=== PATIENT | male | born 1955 | race Caucasian/White ===

== ENCOUNTER 2016-12-23 04:42 | Emergency (ER) | payer MEDICARE, BC ==
[2016-12-23 05:33] VITALS: BP 111/60
[2016-12-23] MEDS ORDERED: Ketorolac INJ* 60 MG/2 ML VIAL IM ONE (05:49)
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
--- NOTE | 2016-12-23 08:04 | RAD ---
INDICATION: Left rib injury. TECHNIQUE: 4 views of the left ribs were obtained. FINDINGS: No fracture or significant focal osseous abnormality is seen. IMPRESSION: NO EVIDENCE FOR FRACTURE, IF THE PATIENT'S SYMPTOMS PERSIST RECOMMEND FOLLOW-UP IMAGING.
== END 2016-12-23 06:39 | disposition home or self-care (01) ==
LOC: ED 04:42
DX: S20.212A Contusion of left front wall of thorax, initial encounter (principal); K21.9 Gastro-esophageal reflux disease without esophagitis; M19.90 Unspecified osteoarthritis, unspecified site; B19.20 Unspecified viral hepatitis C without hepatic coma; X50.9XXA Other and unspecified overexertion or strenuous movements or postures, initial encounter; Y93.K9 Activity, other involving animal care; Y92.9 Unspecified place or not applicable; I25.10 Atherosclerotic heart disease of native coronary artery without angina pectoris; E78.00 Pure hypercholesterolemia, unspecified; Z72.0 Tobacco use
CPT/HCPCS: 93005; 96372; 99282; J1885

== ENCOUNTER 2019-01-31 02:23 | Emergency (ER) | payer MEDICARE ==
--- NOTE | 2019-01-31 02:46 | ED ---
Complex/Multi-Sys Presentation - HPI Summary HPI Summary: A 63 y/o M presents to the ED with c/o LLE pain from his ankle to knee onset last night. The pain was present yesterday, but less painful, and then intensity returned again this evening when he went to sleep. He's been unable to sleep due to the pain. Associated sx: intermittent mid-sternal CP described as not heavy; MOSES. Denies cough. PMHx: 3 stents, Liver CA. No history of blood clots. He takes a daily aspirin. Current smoker. He states falling down a few weeks ago, but nothing recently. He's used a massager on his LLE to mild relief. - History Of Current Complaint Chief Complaint: EDShortnessOfBreath Hx Obtained From: Patient Onset/Duration: Lasting Days, Still Present Timing: Constant Severity Currently: Moderate Severity Initially: Moderate Location: Pain At: - LLE Alleviating Factor(s): massage - mild relief Associated Signs And Symptoms: Positive: Chest Pain, Other - pos: dyspnea on exertion. Negative: Cough - Allergies/Home Medications Allergies/Adverse Reactions: Allergies Allergy/AdvReac Type Severity Reaction Status Date / Time No Known Allergies Allergy Verified 01/31/19 02:32 PMH/Surg Hx/FS Hx/Imm Hx Previously Healthy: No Endocrine/Hematology History: Reports: Hx Diabetes - DIET CONTROLLED Cardiovascular History: Reports: Hx Coronary Artery Disease - 2 CORONARY STENTS , Hx Hypercholesterolemia, Hx Hypertension, Other Cardiovascular Problems/ Disorders - CAD Denies: Hx Congestive Heart Failure, Hx Pacemaker/ICD GI History: Reports: Hx Gastroesophageal Reflux Disease History: Denies: Hx Renal Disease Musculoskeletal History: Reports: Hx Arthritis - ALL OVER Sensory History: Reports: Hx Contacts or Glasses Denies: Hx Hearing Aid Opthamlomology History: Reports: Hx Contacts or Glasses Psychiatric History: Denies: Hx Panic Disorder - Cancer History Cancer Type, Location and Year: [facility]STAT[facility] Hx Chemotherapy: No Hx Radiation Therapy: No - Surgical History Surgery Procedure, Year, and Place: CSP FUSION SURGERY, 2000, [facility]. [place] [facility] [place], [place], [place] [facility] [place] [facility] [place], [place] [facility] [place] CARDI[place] - 2008 Hx Anesthesia Reactions: No Infectious Disease History: Yes Infectious Disease History: Reports: Hx Hepatitis - HEP C Denies: Traveled Outside the [place] in Last 30 Days - Family History Known Family History: Positive: Cardiac Disease - Social History Occupation: Retired Lives: With Family Alcohol Use: None Hx Substance Use: No Substance Use Type: Reports: None Hx Tobacco Use: Yes Smoking Status (MU): Heavy Every Day Tobacco Smoker Review of Systems Positive: Chest Pain Positive: Other - pos: MOSES. Negative: Cough Musculoskeletal: Other - pos: LLE pain All Other Systems Reviewed And Are Negative: Yes Physical Exam - Summary Physical Exam Summary: Appearance: Well-appearing, Well-nourished, lying in bed comfortably Skin: Warm, dry, no obvious rash Eyes: sclera anicteric, no conjunctival pallor ENT: mucous membranes moist, pharynx appears normal Neck: Supple, nontender Respiratory: Clear to auscultation, no signs of respiratory distress Cardiovascular: Normal S1, S2. No murmurs. Normal distal pulses in tibial and radial bilaterally. Abdomen: Soft, nontender, normal active bowel sounds present Musculoskeletal: Normal, Strength/ROM Intact. LLE is markedly swollen and without erythema or streaking. Neurological: A&Ox3, awake and alert, mentation is normal, speech is fluent and appropriate Psychiatric: affect is normal, does not appear anxious or depressed Triage Information Reviewed: Yes Vital Signs On Initial Exam: Initial Vitals Temp Pulse Resp BP Pulse Ox 97.8 F 82 16 151/83 95 01/31/19 02:25 01/31/19 02:25 01/31/19 02:25 01/31/19 02:25 01/31/19 02:25 Vital Signs Reviewed: Yes Diagnostics - Vital Signs Vital Signs Temp Pulse Resp BP Pulse Ox 01/31/19 02:25 97.8 F 82 16 151/83 95 - Laboratory Result Diagrams: 01/31/19 03:35 01/31/19 03:35 Lab Statement: Any lab studies that have been ordered have been reviewed, and results considered in the medical decision making process. - Radiology CXR Radiology Interpretation Completed By: ED Physician Summary of Radiographic Findings: Perihilar prominent markings on right. - CT Chest/Thorax CTA CT Interpretation Completed By: Radiologist Summary of CT Findings: IMPRESSION: 1. No pulmonary emboli. 2. Biapical scarring. Paraseptal emphysema. 3. Stable 8mm pulmonary nodule in the media aspect of the left apex, 4 mm subpleural nodule in the left lingula, and 3 mm pulmonary nodule in the right lower lobe. 4. Additional small new pulmonary nodules as described above. For patients at low risk (minimal or absent history of smoking and of other known risk factors), no routine follow-up is indicated. For patients at high risk (history of smoking or of other known risk factors), consider optional CT at 12 months. (Lisa et al., Fleischner Society, 2017) 5. Mild cardiomegaly with coronary calcification. ED provider has reviewed this report. - EKG 0238 Cardiac Rate: NL - 77bpm EKG Rhythm: Sinus Rhythm ST Segment: Normal Ectopy: None Summary of EKG Findings: NSR at77 BPM, P waves, QRS complex, and T waves are within normal limits, T waves and intervals are normal, no ischemic changes. Re-Evaluation - Re-Evaluation 1 Re-Evaluation Time: 06:45 Change: Unchanged Comment: Pt is sleeping. Complex Multi-Symp Course/Dx Course Of Treatment: This is a patient with acute swelling of the left leg associated with onset of chest pain and dyspnea on exertion, new for the patient who normally can walk extended distances without difficulty. Exam notable only for swollen left leg. Clinical picture very concerning for DVT/PE, Wells score is high so will proceed to imaging/CTPA assuming renal function is adequate. Given high clinical suspicion I have elected to start heparin empirically. CXR shows Perihilar prominent markings on right. Patient will be signed out to Dr. Amado at shift change pending US results. Discharge - Sign-Out/Discharge Documenting (check all that apply): Sign-Out Patient Signing out patient TO: Hortencia Amado - pending US results Patient Received Moderate/Deep Sedation with Procedure: No - Discharge Plan Referrals: Arjun Daniel MD [Primary Care Provider] - - Attestation Statements Document Initiated by Scribe: Yes Documenting Scribe: Armen Kern Provider For Whom Scribe is Documenting (Include Credential): Dr. Adolfo Humphries MD Scribe Attestation: I, Armen Kern, scribed for Dr. Adolfo Humphries MD on 01/31/19 at 0687.
[2019-01-31] MEDS ORDERED: Heparin DRIP 25,000 UNITS(*) 25,000 UNITS/500 ML BAG IV SCH (03:00)
[2019-01-31 03:44] LABS: ABS Basophils 0.1 10^3/ul (0-0.2); ABS Eosinophils 0.1 10^3/ul (0-0.6); ABS Lymphocytes 1.4 10^3/ul (1.0-4.8); ABS Monocytes 0.9 10^3/ul (0-0.8); ABS Neutrophils 5.6 10^3/ul (1.5-7.7); ABS Nucleated RBC 0 10^3/ul; Eosinophil % 1.6 %; Hematocrit 26 % (36-46); Hemoglobin 8.1 g/dL (14.0-18.0); Lymphocyte % 17.7 %; Mean Corpuscular HGB Conc 32 g/dL (31-36); Mean Corpuscular Hemoglobin 29 pg (27-31); Mean Corpuscular Volume 91 fL (80-94); Mean Platelet Volume 7.8 fL (7.4-10.4); Nucleated Red Blood Cells % 0; Platelet Count 287 10^3/uL (150-450); Red Cell Distribution Width 15 % (10.5-15); White Blood Count 8.1 10^3/uL (3.5-10.8)
[2019-01-31 04:10] LABS: Albumin 2.8 g/dL (3.2-5.2); Albumin/Globulin Ratio 1.2 (1-3); EGFR African American 117.4 (>60); Globulin 2.4 g/dL (2-4); Potassium 3.7 mmol/L (3.5-5.0); Total Bilirubin 0.4 mg/dL (0.2-1.0); Total Protein 5.2 g/dL (6.4-8.9)
[2019-01-31 04:12] LABS: Troponin I 0.01 ng/mL (<0.04)
[2019-01-31] MEDS ORDERED: Iodixanol* (CONTRAST) 320 MG/ML 100 ML SDV IV ONE (04:32)
[2019-01-31] MEDS ORDERED: Morphine 4 MG/ML VIAL (1 ml) 4 MG/ML VIAL IV ONE (04:46)
--- NOTE | 2019-01-31 07:15 | ED ---
Progress - Progress Note Progress Note: 0657 The pt is a signout from Dr. Humphries on 01/31/19 0700, pending further evaluation and US results. Presently, the pt denies abd pain, vomiting, nausea, chest pain or sob. He reports hes had L leg pain associated for the last couple of weeks, and could not sleep which is why he initially came in. When asked if he has had anemia in the past, he states not that he has known about a hx of anemia. He states he has a hx of GI bleed and ulcer where he had bright red blood in his stool a couple of years ago, but he presently denies any black stool or blood in his stool. He is on aspirin for his heart. His hx also includes HTN, CHF, and he is a smoker. He denies alcohol use or any other drugs, and he is retired. His PCP is Dr. Daniel, and he sees Dr. Cates for GI. Vitals while in room : 64bpm, BP 115/72, respirations 20, SaO2 97%. Home Medications Medication Instructions Recorded Confirmed Type DULoxetine CAP* [Cymbalta CAP*] 60 mg PO BID 08/05/13 11/11/14 History Lisinopril TAB* [Prinivil TAB*] 10 mg PO DAILY 08/05/13 11/11/14 History Multivit with Iron,Minerals 1 chw PO DAILY 08/05/13 11/11/14 History [Flintstones Complete] Pantoprazole TAB * [Protonix TAB 40 mg PO DAILY 08/05/13 11/11/14 History (NF)] Aspirin 81 mg CHEW TAB* [Aspirin 81 mg PO DAILY 09/20/13 11/11/14 History Low Dose TAB*] Nitroglycerin TAB 0.4 MG* 0.4 mg SL Q5M PRN 09/20/13 11/11/14 History Amitriptyline TAB* [Elavil TAB*] 10 mg PO BEDTIME 11/11/14 11/11/14 History Methadone TAB* [Dolophine TAB*] 10 mg PO Q8HR PRN 11/11/14 11/11/14 History Sucralfate SUSP (NF) [Carafate 5 ml PO Q6HR 11/11/14 11/11/14 History SUSP (NF)] Varenicline (NF) [Chantix (NF)] 1 mg PO DAILY 11/11/14 11/11/14 History traZODone TAB* [Desyrel TAB*] 50 mg PO BEDTIME 11/11/14 11/11/14 History Naproxen TAB* [Naprosyn TAB*] 500 mg PO BID #30 tab 12/23/16 Rx Appearance: well-appearing, minimal pain distress, well-nourished Skin: Warm, color reflects adequate perfusion, dry Head: Normal Head/Face inspection, atraumatic Eyes: Conjunctiva clear ENT: Normal inspection Neck: Supple, no nodes, no JVD Respiratory: Lungs clear, normal breath sounds, no respiratory distress Cardio: RRR, No murmur, pulses normal, brisk capillary refill Abdomen: Soft, nontender Bowel sounds: Present Musculoskeletal: Multiple excoriations on bilateral forearms, sleeves on both forearms. L calf tenderness, 2+ bilateral edema. No knee or thigh tenderness. Psychological: Normal Neuro: Alert, muscle tone normal, no focal deficit Ramya present for pt's rectal exam. No hemorrhoids. The prostate is normal, non-tender. There is soft, brown stool with a slight red tinge to it. Sent for stool guaiac, which is negative. - Results/Orders Results/Orders: DVT US LE No sonographic evidence for deep vein thrombosis. ED physician has reviewed this report. Stool occult blood exam is negative. Repeat CBC will be completed. Repeat Hb is 8.5. Re-Evaluation - Re-Evaluation 1 Re-Evaluation Time: 09:30 Change: Improved Comment: Guaiac results came back negative. CBC will be repeated, his orthostatics are negative. The pt feels fine, reports no new symptoms, and would like to go home. 2nd re-eval Re-Evaluation Time: 10:20 Change: Improved Comment: Discussed pt's repeat lab results and he is agreeable to go home. Course/Dx - Course Course Of Treatment: The pt is a signout from Dr. Humphries on 01/31/19 at 0700, pending further evaluation and US results. Nurses' and prior physician's notes reviewed. Pt's medications reviewed this visit. The pt has a hx of CAD, and presented to the ED with a chief complaint of chest pain and shortness of breath. Dr. Humphries reported a CTPA showed no PE, but his hemoglobin levels were very low 8.1. The plan of care includes a US to rule out DVT, due to left leg pain and swelling, one week after a fall. Pts labs show hematology results including Hgb at 8.1, Hct 26. Pts chemistry results show BUN/creatinine ratio of 30.0 although normal BUN, creat and GFR, lactic acid 0.05, calcium 8.0, troponin I 0.01, total protein 5.2, and albumin 2.8. Presently, the pt denies abd pain, vomiting, nausea, chest pain or sob. He reports hes had L leg pain associated for the last couple of weeks, and could not sleep which is why he initially came in. He has a hx of GI bleed and ulcer where he had bright red blood in his stool a couple of years ago, but he presently denies any black stool or blood in his stool. He is on aspirin for his heart. A Hb from 2015, which is the only other Hb in [facility] [place] records was 12.7. His hx also includes CHF, and he is a smoker. He denies alcohol use or any other drugs, and he is retired. His PCP is Dr. Daniel, and he sees Dr. Cates for GI. Vitals while in room : 64bpm, BP 115/72, respirations 20, SaO2 97%. Ramya present for pt's rectal exam. The prostate is normal, non-tender. There is brown stool with slight red tinge to it, but is guaiac neg. US shows no sonographic evidence for deep vein thrombosis. CBC repeated almost 7 hrs since the first was increased from 8.1 to 8.5, and his orthostatics are negative so there is no evidence of active bleeding as a cause of the anemia, CP or SOB. The pt feels fine, reports no new symptoms, is able to walk unassisted and without a limp, and has not CP or SOB. A second troponin almost 7 hrs later is also neg at 0.01. Pt would like to go home. He is discharged to home with dx: left leg pain, chest pain, dyspnea and anemia. - Diagnoses Provider Diagnoses: Chest pain, Dyspnea, Anemia, Left leg pain, Hypertension, poor control Discharge - Sign-Out/Discharge Documenting (check all that apply): Patient Departure - home, Receiving Sign-Out Receiving patient FROM: Adolfo Humphries - 01/31/19 0700 Patient Received Moderate/Deep Sedation with Procedure: No - Discharge Plan Condition: Stable Disposition: HOME Patient Education Materials: Chest Pain (ED), Anemia (ED) Referrals: Arjun Daniel MD [Primary Care Provider] - 1 Day Gregg Tipton MD [Medical Doctor] - As Soon As Possible Additional Instructions: Your hemoglobin was 8.1, and then the repeat was 8.5. Your stool did not show any hidden blood. Your CTA did not show a pulmonary embolus. Your doppler study showed no DVT in your leg. , our interventional radiologist, noted calcifications in your iliac arteries, and proposed that you may have claudication as the cause of your leg pain. If you would like this evaluated by Dr. Tipton, you may contact his office and arrange an appointment. You should definitely discuss this and your hemoglobin and your chest pain and shortness of breath with Dr. Daniel. Return to the ED if you have any new or worsening symptoms. - Billing Disposition and Condition Condition: STABLE Disposition: Home - Attestation Statements Document Initiated by Kike: Yes Documenting Scribe: Cheyenne Hooks Provider For Whom Kike is Documenting (Include Credential): Dr. oHrtencia Amado MD. Scribe Attestation: Cheyenne Nunn scribed for Dr. Hortencia Amado MD. on 02/02/19 at 2207. Scribe Documentation Reviewed: Yes Provider Attestation: The documentation as recorded by the sherrellibeCheyenne accurately reflects the service I personally performed and the decisions made by , Dr. Hortencia Amado MD. Status of Scribe Document: Viewed
[2019-01-31 09:53] LABS: ABS Basophils 0.1 10^3/ul (0-0.2); ABS Eosinophils 0.2 10^3/ul (0-0.6); ABS Lymphocytes 1.8 10^3/ul (1.0-4.8); ABS Monocytes 0.7 10^3/ul (0-0.8); ABS Neutrophils 4.1 10^3/ul (1.5-7.7); ABS Nucleated RBC 0 10^3/ul; Eosinophil % 2.7 %; Hematocrit 26 % (36-46); Hemoglobin 8.5 g/dL (14.0-18.0); Lymphocyte % 26.8 %; Mean Corpuscular HGB Conc 33 g/dL (31-36); Mean Corpuscular Hemoglobin 30 pg (27-31); Mean Corpuscular Volume 91 fL (80-94); Mean Platelet Volume 7.7 fL (7.4-10.4); Nucleated Red Blood Cells % 0; Platelet Count 291 10^3/uL (150-450); Red Blood Count 2.84 10^6 /uL (4.18-5.48); Red Cell Distribution Width 15 % (10.5-15); White Blood Count 6.9 10^3/uL (3.5-10.8)
[2019-01-31 10:35] VITALS: BP 131/70
== END 2019-01-31 10:35 | disposition home or self-care (01) ==
LOC: ED 02:23
DX: M25.572 Pain in left ankle and joints of left foot (principal); Z72.0 Tobacco use; B19.20 Unspecified viral hepatitis C without hepatic coma; Z79.82 Long term (current) use of aspirin; E11.9 Type 2 diabetes mellitus without complications; I25.10 Atherosclerotic heart disease of native coronary artery without angina pectoris; Z95.818 Presence of other cardiac implants and grafts; E78.00 Pure hypercholesterolemia, unspecified; I10 Essential (primary) hypertension; Z85.05 Personal history of malignant neoplasm of liver; I51.7 Cardiomegaly
CPT/HCPCS: 36415; 71046; 71275; 80053; 82272; 83605; 84484; 85025; 85730; 93005; 96374; 99283; J2270; Q9967

== ENCOUNTER 2019-03-11 19:09 | Emergency (ER) | payer MEDICARE ==
[2019-03-11] MEDS ORDERED: NS 0.9% 1000 ML** 1,000 ML IV.FLUID IV ONE (21:21)
[2019-03-11] MEDS ORDERED: Acetaminophen TAB* 325 MG PO ONE (21:22)
[2019-03-11] MEDS ORDERED: Morphine 4 MG/ML VIAL (1 ml) 4 MG/ML VIAL IV ONE ×2 (21:22→23:36)
[2019-03-11] MEDS ORDERED: Levofloxacin 500 MG IVPREMIX(* 500 MG/100 ML BAG IVPB ONE (21:23)
--- NOTE | 2019-03-11 21:47 | ED ---
GI/ HPI - HPI Summary HPI Summary: The patient is a 63 Y/O male who [facility] a chief complaint of testicular pain. The pain is described to be discrete at the patient's right testicle and onset is 2 days ago. He also reports of swelling at the right testicle and states that the testicle is 3 times the size of the left testicle. The pain is constant. Symptoms are aggravated by nothing. Symptoms are alleviated by nothing. Pertinent PMHx includes Hepatitis C. Pain is rated to be a 10/10 in severity. He denies N/V. Redness is also reported at the scrotum. - History of Current Complaint Chief Complaint: EDUrogenitalProblems Time Seen by Provider: 03/11/19 21:14 Stated Complaint: RT TESTICLE PAIN AND SWOLLEN PER PT Hx Obtained From: Patient Onset/Duration: Started Days Ago - 2 days ago Timing: Constant Severity: Severe Current Severity: Severe Pain Intensity: 10 Additional Locations for Males: Testicles Associated Signs and Symptoms: Positive: Other: - Swelling at the right testicle ; redness at the scrotum - Allergy/Home Medications Allergies/Adverse Reactions: Allergies Allergy/AdvReac Type Severity Reaction Status Date / Time No Known Allergies Allergy Verified 01/31/19 02:32 PMH/Surg Hx/FS Hx/Imm Hx Endocrine/Hematology History: Reports: Hx Diabetes - DIET CONTROLLED Cardiovascular History: Reports: Hx Coronary Artery Disease - 2 CORONARY STENTS , Hx Hypercholesterolemia, Hx Hypertension, Other Cardiovascular Problems/ Disorders - CAD Denies: Hx Congestive Heart Failure, Hx Pacemaker/ICD GI History: Reports: Hx Gastroesophageal Reflux Disease History: Denies: Hx Renal Disease Musculoskeletal History: Reports: Hx Arthritis - ALL OVER Sensory History: Reports: Hx Contacts or Glasses Denies: Hx Hearing Aid Opthamlomology History: Reports: Hx Contacts or Glasses Psychiatric History: Denies: Hx Panic Disorder - Cancer History Cancer Type, Location and Year: 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 RIGHT SHOULDER, 2009, [facility]. [place]IC [place]PASS, 2002, [place] LEFT HAND CTR, 2007, [facility] RIGHT HAND CTR, 2009, [facility]. HERNIA, 1992, [facility]. CARDIAC STENTS - 2007 Hx Anesthesia Reactions: No - Immunization History Date of Tetanus Vaccine: unk Date of Influenza Vaccine: fall 2017 Infectious Disease History: Yes Infectious Disease History: Reports: Hx Hepatitis - HEP C Denies: Traveled Outside the [place] in Last 30 Days - Family History Known Family History: Positive: Cardiac Disease - Social History Lives: With Family Alcohol Use: None Hx Substance Use: No Substance Use Type: Reports: None Hx Tobacco Use: Yes Smoking Status (MU): Heavy Every Day Tobacco Smoker Review of Systems Eyes: Negative ENT: Negative Cardiovascular: Negative Respiratory: Negative Negative: Vomiting, Nausea Genitourinary: Other - Right Testicular swelling Musculoskeletal: Negative Skin: Other - Redness at the Scrotum Neurological: Negative Psychological: Normal All Other Systems Reviewed And Are Negative: Yes Physical Exam - Summary Physical Exam Summary: VITAL SIGNS: Reviewed. GENERAL: Patient is a well-developed and nourished (MALE) who is lying comfortable in the stretcher. Patient is not in any acute respiratory distress. HEAD AND FACE: No signs of trauma. No ecchymosis, hematomas or skull depressions. No sinus tenderness. EYES: PERRLA, EOMI x 2, No injected conjunctiva, no nystagmus. EARS: Hearing grossly intact. Ear canals and tympanic membranes are within normal limits. MOUTH: Oropharynx within normal limits. NECK: Supple, trachea is midline, no adenopathy, no JVD, no carotid bruit, no c- spine tenderness, neck with full ROM CHEST: Symmetric, no tenderness at palpation LUNGS: Clear to auscultation bilaterally. No wheezing or crackles. CVS: Regular rate and rhythm, S1 and S2 present, no murmurs or gallops appreciated. ABDOMEN: Soft, non-tender. No signs of distention. No rebound no guarding, and no masses palpated. Bowel sounds are normal. EXTREMITIES: FROM in all major joints, no edema, no cyanosis or clubbing. NEURO: Alert and oriented x 3. No acute neurological deficits. Speech is normal and follows commands. SKIN: Dry and warm Testicle Exam: Swollen tender and warm at right testicle Triage Information Reviewed: Yes Vital Signs On Initial Exam: Initial Vitals Temp Pulse Resp BP Pulse Ox 100.2 F 108 20 104/57 95 03/11/19 19:20 03/11/19 19:20 03/11/19 19:20 03/11/19 19:20 03/11/19 19:20 Vital Signs Reviewed: Yes Diagnostics - Vital Signs Vital Signs Temp Pulse Resp BP Pulse Ox 03/11/19 19:20 100.2 F 108 20 104/57 95 - Laboratory Result Diagrams: 03/11/19 22:09 03/11/19 22:09 Lab Statement: Any lab studies that have been ordered have been reviewed, and results considered in the medical decision making process. - Ultrasound No standard instances Ultrasound Interpretation Completed By: Radiologist Summary of Ultrasound Findings: Testicular US reveals as per radiologist report 1. There is asymmetric hypervascularity of the right testicle suspicious for. right-sided orchitis. 2. There is a small to moderate mildly complex right scrotal hydrocele with. thin internal septation, cannot exclude pyocele. ED Physician has reviewed this radiology report. GIGU Course/Dx - Course Course Of Treatment: The patient is a 63 year old male who is presenting to the [facility] with a chief complaint of right testicular pain. The right testicle shows swelling and the scrotum shows redness and warmness as per physical exam findings. An US of the testicles was taken in the [facility]. No Urologist is ordnance truck installation supervisor at this time at the [facility]. We discussed the case w/ Dr. Barajas (The urologist ordnance truck installation supervisor) and he recommends the patient be transferred to the Emergency room at [facility]. Dr. Barajas accepts patient care at 2330. We discussed the case with Dr. Carlson (Emergency room physician) and he accepts patient transfer at 2334. The patient will be transfered to [facility] and will be driven by his . He is agreeable with this plan. The dx will be right orchitis and right pyocele. - Diagnoses Provider Diagnoses: Orchitis, right, Pyocele - Physician Notifications Discussed Care Of Patient With: Vianca Barajas Discharge - Sign-Out/Discharge Documenting (check all that apply): Patient Departure - Discharge Plan Condition: Stable Disposition: TRANS HIGHER LVL OF CARE FAC Referrals: Arjun aDniel MD [Primary Care Provider] - - Billing Disposition and Condition Condition: STABLE Disposition: Trans Higher Lvl of Care Fac - Attestation Statements Document Initiated by Scribe: Yes Documenting Scribe: Rolo Aguilar Provider For Whom Scribe is Documenting (Include Credential): Dr. Damion Amaro Scribe Attestation: I, Rolo Aguilar, scribed for Dr. Damion Amaro on 03/11/19 at 2342. Scribe Documentation Reviewed: Yes Provider Attestation: The documentation as recorded by the Rolo chairez accurately reflects the service I personally performed and the decisions made by me, Dr. Damion Amaro Status of Scribe Document: Viewed
[2019-03-11] MEDS: Ondansetron INJ* 2 MG/ML VIAL IV ONE ×2 (21:59)
[2019-03-11 22:17] LABS: ABS Lymphocytes 1.3 10^3/ul (1.0-4.8); ABS Monocytes 1.5 10^3/ul (0-0.8); ABS Neutrophils 17.4 10^3/ul (1.5-7.7); Eosinophil % 0.1 %; Hematocrit 30 % (42-52); Hemoglobin 9.1 g/dL (14.0-18.0); Lymphocyte % 6.4 %; Mean Corpuscular HGB Conc 31 g/dL (31-36); Mean Corpuscular Hemoglobin 27 pg (27-31); Mean Corpuscular Volume 87 fL (80-94); Mean Platelet Volume 8.1 fL (7.4-10.4); Platelet Count 238 10^3/uL (150-450); Red Blood Count 3.39 10^6 /uL (4.18-5.48); Red Cell Distribution Width 17 % (10.5-15); White Blood Count 20.2 10^3/uL (3.5-10.8)
[2019-03-11 22:34] LABS: Albumin 2.9 g/dL (3.2-5.2); Albumin/Globulin Ratio 1.1 (1-3); BUN/Creatinine Ratio 26.9 (8-20); Calcium 8.3 mg/dL (8.6-10.3); EGFR African American 120.9 (>60); EGFR Non-African American 99.9 (>60); Globulin 2.6 g/dL (2-4); Potassium 3.3 mmol/L (3.5-5.0); Total Bilirubin 0.3 mg/dL (0.2-1.0); Total Protein 5.5 g/dL (6.4-8.9)
[2019-03-11] MEDS ORDERED: Potassium Chlor TAB* 20 MEQ TAB.ER PO ONE (22:39)
[2019-03-11] MEDS ORDERED: Ketorolac INJ* 30 MG/ML 1 ML VIAL IV PUSH ONE (23:36)
[2019-03-12 00:01] VITALS: BP 96/58
--- NOTE | 2019-03-14 01:27 | PN ---
Progress Note - Progress Note Date of Service: 03/14/19 Note: patient blood culture preliminary positive for gram neg bacilli. patient was transferred to [facility]. had gregg fax results to [facility]
== END 2019-03-12 | disposition short-term general hospital (02) ==
LOC: ED 19:09
DX: N45.2 Orchitis (principal); N34.0 Urethral abscess; I10 Essential (primary) hypertension; I25.10 Atherosclerotic heart disease of native coronary artery without angina pectoris; E11.9 Type 2 diabetes mellitus without complications; E78.00 Pure hypercholesterolemia, unspecified; K21.9 Gastro-esophageal reflux disease without esophagitis; F17.210 Nicotine dependence, cigarettes, uncomplicated; Z95.5 Presence of coronary angioplasty implant and graft; Z85.05 Personal history of malignant neoplasm of liver
CPT/HCPCS: 36415; 76870; 80053; 83605; 85025; 87040; 87077; 87186; 96361; 96365; 96366; 96375; 96376; 99284; A9270-GY; J1885; J1956; J2270; J2405

== ENCOUNTER → 2019-05-02 04:06 | Emergency (ER) | payer MEDICARE ==
[~2019-05-02 04:06] MED LIST: Famotidine IV* 10 MG/ML 2 ML (20 mg) IV SLOW PU ONE; Iohexol 300* (CONTRAST) 10 ML SDV IV ONE; Lactated Ringers 1000 ML Bag* 1,000 ML IV ONE; Ondansetron INJ* 2 MG/ML VIAL IV ONE; fentaNYL* 50 MCG/ML 2 ML VIAL (100 MCG VIAL) IV SLOW PU ONE
--- NOTE | 2019-05-02 04:44 | ED ---
Abdominal Pain/Male - HPI Summary HPI Summary: A 63 y/o male accompanied by presents to [facility] with a chief complaint of abdominal pain since this morning. He has a Hx of kidney stones, but states that he has not had a pain like this before. He has passed kidney stones but also has had a lithotripsy 10-15 years ago. 6 weeks ago the patient had a UTI and was placed on abx. He has not seen a urologist. He denies any dysuria or hematuria. He reports nausea and dry heavingHis last BM was yesterday and there was no blood in his stool. He has been passing gas. He has a surgery scar from liver cancer, where they took the top of his liver off, bile duct, gallbladder, appendix were all done at [facility]. - History of Current Complaint Chief Complaint: EDAbdPain Stated Complaint: PAIN PER EMS Time Seen by Provider: 05/02/19 04:18 Hx Obtained From: Patient Onset/Duration: Sudden Onset, Lasting Hours, Still Present Timing: Constant Severity Initially: Moderate Severity Currently: Moderate Pain Intensity: 6 Pain Scale Used: 0-10 Numeric Location: Diffuse - mostly left sided Radiates: No Aggravating Factor(s): Nothing Alleviating Factor(s): Nothing Associated Signs And Symptoms: Positive: Nausea. Negative: Fever, Urinary Symptoms - Allergies/Home Medications Allergies/Adverse Reactions: Allergies Allergy/AdvReac Type Severity Reaction Status Date / Time No Known Allergies Allergy Verified 04/03/19 10:03 PMH/Surg Hx/FS Hx/Imm Hx Endocrine/Hematology History: Reports: Hx Diabetes - DIET CONTROLLED Cardiovascular History: Reports: Hx Coronary Artery Disease - 2 CORONARY STENTS , Hx Hypercholesterolemia, Hx Hypertension, Other Cardiovascular Problems/ Disorders - CAD Denies: Hx Congestive Heart Failure, Hx Pacemaker/ICD GI History: Reports: Hx Gastroesophageal Reflux Disease History: Denies: Hx Renal Disease Musculoskeletal History: Reports: Hx Arthritis - ALL OVER Sensory History: Reports: Hx Contacts or Glasses Denies: Hx Hearing Aid Opthamlomology History: Reports: Hx Contacts or Glasses Psychiatric History: Denies: Hx Panic Disorder - Cancer History Cancer Type, Location and Year: [facility] Hx Chemotherapy: No Hx Radiation Therapy: No - Surgical History Surgery Procedure, Year, and Place: CSP FUSION SURGERY, 2000, [facility] [place] SHOULDER, 2009, [facility] [place]PASS, 2003, [place] LEFT HAND CTR, 2007, [facility] RIGHT HAND CTR, 2009, [facility] HERNIA, 1992, [facility] CARDIAC STENTS - 2007 Hx Anesthesia Reactions: No - Immunization History Date of Tetanus Vaccine: unk Date of Influenza Vaccine: fall 2017 Immunizations Up to Date: Yes Infectious Disease History: No Infectious Disease History: Reports: Hx Hepatitis - HEP C Denies: Traveled Outside the US in Last 30 Days - Family History Known Family History: Positive: Cardiac Disease - Social History Alcohol Use: None Hx Substance Use: No Substance Use Type: Reports: None Hx Tobacco Use: Yes Smoking Status (MU): Current Every Day Smoker Type: eCigarettes Review of Systems Negative: Fever Positive: Abdominal Pain, Nausea Negative: dysuria, hematuria All Other Systems Reviewed And Are Negative: Yes Physical Exam - Summary Physical Exam Summary: Constitutional: Well-developed, Well-nourished, Alert. (-) Distressed Skin: Warm, Dry HENT: Normocephalic; Atraumatic Eyes: Conjunctiva normal Neck: Musculoskeletal ROM normal neck. (-) JVD, (-) Stridor, (-) Tracheal deviation Cardio: Rhythm regular, rate normal, Heart sounds normal; Intact distal pulses; symmetric. Pulmonary/Chest wall: Effort normal. (-) Respiratory distress, (-) Wheezes, (-) Rales Abd: midline surgical scare scar very well healed, distended, firm and tender, bilateral external testes no discharge, circumcised, LLQ tenderness. Musculoskeletal: (-) Edema Neuro: Alert, Oriented x3 Psych: Mood and affect Normal Triage Information Reviewed: Yes Vital Signs On Initial Exam: Initial Vitals Temp Pulse Resp BP Pulse Ox 97.9 F 69 17 168/84 98 05/02/19 04:10 05/02/19 04:10 05/02/19 04:10 05/02/19 04:10 05/02/19 04:10 Vital Signs Reviewed: Yes Diagnostics - Vital Signs Vital Signs Temp Pulse Resp BP Pulse Ox 05/02/19 04:10 97.9 F 69 17 168/84 98 - Laboratory Result Diagrams: 05/02/19 05:03 05/02/19 05:03 Lab Statement: Any lab studies that have been ordered have been reviewed, and results considered in the medical decision making process. Abdominal Pain Male Course/Dx - Course Course Of Treatment: A 63 y/o male accompanied by presents to [facility] with a chief complaint of abdominal pain since this morning. The physical exam revealed midline surgical scare scar very well healed, distended, firm and tender, bilateral external testes no discharge, circumcised, LLQ tenderness. In the ED course the patient was given Pepcid, Fentanyl, Zofran, Lactated Ringers, and Iohexol IV. Bloodwork and chemistries obtained. The patient will be signed out from Dr. Hector to Dr. Chino upon shift change at 07:00 05/02/[address] abdomen/pelvis. - Diagnoses Provider Diagnoses: Abdominal pain Discharge - Sign-Out/Discharge Documenting (check all that apply): Sign-Out Patient Signing out patient TO: Jose Chino - pending CT Patient Received Moderate/Deep Sedation with Procedure: No - Discharge Plan Condition: Stable Referrals: Arjun Daniel MD [Primary Care Provider] - - Attestation Statements Document Initiated by Scribe: Yes Documenting Scribe: Cahrly Miles Provider For Whom Scribe is Documenting (Include Credential): Mukul Hector MD Scribe Attestation: ICharly, scribed for Mukul Hector MD on 05/02/19 at 0709.
[2019-05-02 05:12] LABS: ABS Lymphocytes 0.9 10^3/ul (1.0-4.8); ABS Monocytes 0.8 10^3/ul (0-0.8); ABS Neutrophils 10.7 10^3/ul (1.5-7.7); Hematocrit 33 % (42-52); Hemoglobin 10.6 g/dL (14.0-18.0); Lymphocyte % 7.6 %; Mean Corpuscular HGB Conc 33 g/dL (31-36); Mean Corpuscular Hemoglobin 29 pg (27-31); Mean Corpuscular Volume 89 fL (80-94); Mean Platelet Volume 7.9 fL (7.4-10.4); Platelet Count 239 10^3/uL (150-450); Red Blood Count 3.66 10^6 /uL (4.18-5.48); Red Cell Distribution Width 20 % (10-15); White Blood Count 12.5 10^3/uL (3.5-10.8)
[2019-05-02 05:34] LABS: Albumin 3.4 g/dL (3.2-5.2); Albumin/Globulin Ratio 1.3 (1-3); Calcium 8.8 mg/dL (8.6-10.3); EGFR African American 136.9 (>60); EGFR Non-African American 113.2 (>60); Globulin 2.7 g/dL (2-4); Magnesium 1.9 mg/dL (1.9-2.7); Potassium 4.2 mmol/L (3.5-5.0); Total Bilirubin 0.3 mg/dL (0.2-1.0); Total Protein 6.1 g/dL (6.4-8.9)
--- NOTE | 2019-05-02 07:26 | ED ---
Progress - Progress Note Progress Note: Pt is a signout at 0700 on 05/02/[address] Hector pending CT results. - Results/Orders Results/Orders: CT abd/pelv shows: 1. THE PATIENT APPEARS TO BE STATUS POST EDMOND-EN-Y GASTRIC BYPASS SURGERY. THERE IS DILATATION OF THE BYPASSED STOMACH AND PROXIMAL DUODENUM CONSISTENT WITH AN OBSTRUCTION WHICH APPEARS TO BE IN THE REGION OF THE JEJUNOJEJUNOSTOMY. 2. STATUS POST PARTIAL HEPATIC RESECTION. 3. LARGE AMOUNT RETAINED STOOL THROUGHOUT THE COLON. ED physician has reviewed this report. Re-Evaluation - Re-Evaluation 1st re-eval Re-Evaluation Time: 08:07 Change: Improved Comment: Pt states that his pain is slightly better. I informed him of the results of his CT. Course/Dx - Course Course Of Treatment: Pt is a signout at 0700 on 05/02/[address] Hector pending CT results. CT abd/pelv shows: 1. THE PATIENT APPEARS TO BE STATUS POST EDMOND-EN-Y GASTRIC BYPASS SURGERY. THERE IS DILATATION OF THE BYPASSED STOMACH AND PROXIMAL DUODENUM CONSISTENT WITH AN OBSTRUCTION WHICH APPEARS TO BE IN THE REGION OF THE JEJUNOJEJUNOSTOMY. 2. STATUS POST PARTIAL HEPATIC RESECTION. 3. LARGE AMOUNT RETAINED STOOL THROUGHOUT THE COLON. As of 806, I informed the pt of the results of his CT, and he states he is feeling slighty better. I spoke with Dr. Arita at 0813 who will be coming in to evaluate the pt further. [address] Arita about the pts condition. The pt had a recent hepatic surgery at [facility] in [place], [place], and he agrees that it is advisable to transfer the pt back to [facility] for continuity of care. At 1006, I talked to Dr. Sampson of [facility]'s surgery about the pt 's present status, who recommended that I instead speak with surgical oncology. 1016 - I spoke with Dr. Vences of colorectal surgery at [facility], who accepts to the 5th floor, to call back with a bed assignment. Per [facility] as of 1230, the pt will not have a bed in the hospital until approximately [id number]. I reevaluated the patient at 1450, currently has no pain, belly is not tender, has not vomited at all. The patient may have had a reduced intussusception of his jejunum. It still be transferred back to where he had his original surgery. - Diagnoses Provider Diagnoses: SBO (small bowel obstruction) - Provider Notifications Discussed Care Of Patient With: Marlon Arita Time Discussed With Above Provider: 08:52 Instructed by Provider To: Transfer - Critical Care Time Critical Care Time: 30-74 min - 45minutes Discharge - Sign-Out/Discharge Documenting (check all that apply): Patient Departure, Receiving Sign-Out Receiving patient FROM: Mukul Hector - Discharge Plan Condition: Stable Disposition: TRANS HIGHER LVL OF CARE FAC Referrals: Arjun Daniel MD [Primary Care Provider] - - Billing Disposition and Condition Condition: STABLE Disposition: Trans Higher Lvl of Care Fac - Attestation Statements Document Initiated by Scribe: Yes Documenting Scribe: Cheyenne Hooks Provider For Whom Scribe is Documenting (Include Credential): Jose Chino MD. Scribe Attestation: ICheyenne, scribed for Jose Chino MD. on 05/02/19 at 1452. Scribe Documentation Reviewed: Yes Provider Attestation: The documentation as recorded by the sherrellibe, Cheyenne Hooks accurately reflects the service I personally performed and the decisions made by me, Jose Chino MD. Status of Scribe Document: Viewed Consult Consult: 0813 - I spoke with Dr. Arita who will be coming in to evaluate the pt. [address] Arita about the pts condition. The pt had a recent hepatic surgery at [facility] in [place], [place], and he agrees that it is advisable to transfer the pt back to [facility] for continuity of care. 0922 - I spoke with the transfer center about the pt. 1006 - I talked to Dr. Sampson of [facility]'s surgery about the pt's present status, who recommended that I instead speak with surgical oncology. 1016 - I spoke with Dr. Vences of colorectal surgery at [facility], who accepts to the 5th floor, to call back with a bed assignment.
[2019-05-02 08:12] LABS: Urine Appearance Clear; Urine Bilirubin Negative (Negative); Urine Blood Negative (Negative); Urine Color Yellow; Urine Glucose Negative (Negative); Urine Ketones Negative (Negative); Urine Nitrite Negative (Negative); Urine Protein Negative (Negative); Urine Urobilinogen Negative (Negative)
[2019-05-02 15:05] VITALS: BP 138/71
== END | disposition short-term general hospital (02) ==
LOC: ED 04:06
DX: R10.9 Unspecified abdominal pain (principal); E11.9 Type 2 diabetes mellitus without complications; I25.10 Atherosclerotic heart disease of native coronary artery without angina pectoris; I10 Essential (primary) hypertension; F17.290 Nicotine dependence, other tobacco product, uncomplicated
CPT/HCPCS: 36415; 74177; 80053; 81003; 83605; 83690; 83735; 85025; 96361; 96374; 96375; 99285; J2405; J3010; Q9967

== ENCOUNTER 2019-05-20 19:59 | Emergency (ER) | payer MEDICARE ==
--- OUTSIDE RECORDS SUMMARY | 2019-05-20 20:11 | XMS REPORT | Continuity of Care Document ---
:1955 External Reference #:[id number] Author Name Ebonie Fournier Care Team Providers Name Role Phone Arjun Daniel MD Primary Care Physician Unavailable Payers Date Identification Numbers Payment Provider Subscriber Expires: 2017 Policy Number: [id number] Medicare Eddi Isaac PayID: [id number] [address] [place] [address] Policy Number: [id number] Medicare Blue o Eddi Isaac Group Number: [id number] [address] [address] PayID: [id number] [place] [address] Problems Active Problems Provider Date Full thickness rotator cuff tear Rex Villegas MD Onset: 03/09/2018 Disorder of shoulder Rex Villegas MD Onset: 03/09/2018 Localized, primary osteoarthritis of the shoulder Rex Villegas MD Onset: 02/2018 region Family History Date Family Member(s) Observation Comments General Diabetes General Heart Disease General Hypertension General Cancer General Rheumatoid Arthritis Social History Type Date Description Comments Sex Unknown Lives With Occupation Retired ETOH Use Denies alcohol use Tobacco Use Start: Unknown Patient is a current smoker, smokes every day Smoking Status Reviewed: 04/30/19 Patient is a current smoker, smokes every day Allergies, Adverse Reactions, Alerts Description No Known Drug Allergies Medications Active Medications SIG Qnty Indications Ordering Provider Date Meloxicam 1 by mouth 60tabs Rex Villegas MD 05/04/2018 15mg Tablets every day with food Aspir-Low 1 by mouth Unknown 81mg Tablets DR every day Tamsulosin HCL 1 by mouth Unknown 0.4mg every day Capsules Rosuvastatin Calcium 1 by mouth Unknown 20mg every day Tablets Nitrostat one sl q5min up 25tabs Unknown 0.4mg Tablets to 3 doses prn Sub Cymbalta 1 po qd 90caps Unknown 60mg Caps DR Part Metoprolol Tartrate 1 po daily 180tabs Unknown 25mg Tablets Lisinopril 1 po qd 90tabs Unknown 10mg Tablets Methadone HCL 1 po bid 90tabs Unknown 10mg Tablets Pantoprazole Sodium 1 po bid 90tabs Unknown 40mg Tablets DR History Medications Sucralfate 1 by mouth bid 120tabs Unknown - 1gm Tablets 11/06/2016 Minocycline HCL 1 po bid 14caps Unknown - 100mg Capsules 11/06/2017 Ciprofloxacin HCL 1 po bid 20tabs Unknown - 500mg Tablets 11/06/2017 Oxycodone/Acetaminophen 1-2 tabs po q 4 hrs 50tabs Unknown - 5-325mg prn pain 11/06/2017 Tablets Methadone HCL 1 po qd 30tabs Unknown - 5mg Tablets 11/06/2017 Lipitor 1 po qhs 90tabs Unknown - 80mg Tablets 11/06/2017 Trazodone HCL 1 tablet at bedtime Unknown - 50mg Tablets as needed 12/03/2018 Medications Administered in Office Medication SIG Qnty Indications Ordering Provider Date Triamcinolone (Kenalog) Rex Villegas MD 01/31/2019 Injection Triamcinolone (Kenalog) Rex Villegas MD 01/31/2019 Injection Triamcinolone (Kenalog) Rex Villegas MD 09/04/2018 Injection Triamcinolone (Kenalog) Rex Villegas MD 09/04/2018 Injection Triamcinolone (Kenalog) Rex Villegas MD 05/31/2018 Injection Triamcinolone (Kenalog) Rex Villegas MD 05/31/2018 Injection Triamcinolone (Kenalog) Rex Villegas MD 03/09/2018 Injection Triamcinolone (Kenalog) Rex Villegas MD 03/09/2018 Injection Triamcinolone (Kenalog) Elizabeth Oquendo PA-C 11/30/2017 Injection Depomedrol 40MG Felicitas Garcia M.D. 07/21/2016 Injection Depomedrol 80MG Felicitas Garcia M.D. 11/20/2013 Injection Vital Signs Date Vital Result Comment 04/30/2019 8:55am Height 67.75 inches 5'7.75" Weight 152.00 lb BP Systolic 130 mmHg BP Diastolic 78 mmHg Respiratory Rate 18 /min Pain Level 4 BMI (Body Mass Index) 23.3 kg/m2 01/31/2019 11:27am Height 67.75 inches 5'7.75" Weight 152.00 lb Heart Rate 66 /min BP Systolic Sitting 120 mmHg BP Diastolic Sitting 70 mmHg Respiratory Rate 18 /min Pain Level 6 BMI (Body Mass Index) 23.3 kg/m2 09/04/2018 8:47am Height 67.75 inches 5'7.75" Weight 145.00 lb Heart Rate 64 /min BP Systolic Sitting 150 mmHg Lue reg cuff BP Diastolic Sitting 84 mmHg Lue reg cuff Pain Level 4 BMI (Body Mass Index) 22.2 kg/m2 05/31/2018 3:15pm Height 67.75 inches 5'7.75" Weight 145.00 lb Heart Rate 80 /min BP Systolic Sitting 120 mmHg BP Diastolic Sitting 70 mmHg Respiratory Rate 16 /min Pain Level 7 BMI (Body Mass Index) 22.2 kg/m2 05/04/2018 8:32am Height 67.75 inches 5'7.75" Weight 145.00 lb Heart Rate 62 /min Respiratory Rate 15 /min Pain Level 6 BMI (Body Mass Index) 22.2 kg/m2 03/09/2018 9:31am Height 67.75 inches 5'7.75" Heart Rate 59 /min BP Systolic 140 mmHg BP Diastolic 80 mmHg Respiratory Rate 16 /min Body Temperature 97.7 F Pain Level 8 12/12/2017 8:11am Height 67.75 inches 5'7.75" Weight 152.00 lb per pt Heart Rate 64 /min reg BP Systolic Sitting 116 mmHg Lue BP Diastolic Sitting 78 mmHg Lue Respiratory Rate 16 /min Pain Level 6 right shoulder BMI (Body Mass Index) 23.3 kg/m2 11/30/2017 8:36am Height 67.75 inches 5'7.75" Weight 152.00 lb w/ shoes Heart Rate 54 /min reg BP Systolic Sitting 116 mmHg Lue BP Diastolic Sitting 70 mmHg Lue Respiratory Rate 16 /min Pain Level 10 left shoulder 7/10 right shoulder BMI (Body Mass Index) 23.3 kg/m2 07/21/2016 2:35pm Height 67.75 inches 5'7.75" Weight 153.00 lb Pain Level 3 BMI (Body Mass Index) 23.4 kg/m2 10/01/2013 8:55am Height 69 inches 5'9" Weight 182.00 lb Heart Rate 76 /min BP Systolic 118 mmHg BP Diastolic 84 mmHg Body Temperature 96.4 F BMI (Body Mass Index) 26.9 kg/m2 Procedures Date Code Description Status 04/30/201901077 Inject/Drain Joint/Bursa Major W/O US Completed 01/31/201902871 Inject/Drain Joint/Bursa Major W/O US Completed 09/04/201801675 Inject/Drain Joint/Bursa Major W/O US Completed 05/31/2018 32003 Inject/Drain Joint/Bursa Major W/O US Completed 03/09/2018 81517 Inject/Drain Joint/Bursa Major W/O US Completed 11/30/2017 90763 Inject/Drain Joint/Bursa Major W/O US Completed 07/21/2016 82477 Inject/Drain Joint/Bursa Major W/O US Completed 11/20/2013 35828 Rad Exam; Fingers Completed 11/20/2013 87625 Inject Tendon Sheath Or Ligament Aponeurosis Eg Plantar Completed Fascia 04/07/2012 36452 Treadmill Interp/Report Only Completed 04/07/2012 73706 Stress Test Supervsn W/Out I/R Completed Encounters Type Date Location Provider Dx Diagnosis Office Visit 05/04/2018 Orthopedic Rex Villegas MD M19.012 Primary 9:00a [facility] osteoarthritis, left shoulder M75.42 Impingement syndrome of left shoulder M75.122 Complete rotatr-cuff tear/ruptr of left shoulder, not trauma M75.41 Impingement syndrome of right shoulder Office Visit 03/09/2018 Orthopedic Rex Villegas M19.012 Primary 9:15a [facility] MD russell, left [facility] shoulder M75.42 Impingement syndrome of left shoulder M75.122 Complete rotatr-cuff tear/ruptr of left shoulder, not trauma M75.41 Impingement syndrome of right shoulder Office Visit 12/12/2017 Orthopedic Rex Villegas, M19.012 Primary 8:15a Services [facility] osteoarthritis, left [facility] shoulder M75.42 Impingement syndrome of left shoulder M75.122 Complete rotatr-cuff tear/ruptr of left shoulder, not trauma Office Visit 11/30/2017 8:45a Orthopedic Rex Villegas M75.41 Impingement Services [facility] syndrome of right [facility] shoulder M19.012 Primary osteoarthritis, left shoulder S46.012A Strain of musc/tend the rotator cuff of left shoulder, init M75.42 Impingement syndrome of left shoulder Office Visit 07/21/2016 2:10p Orthopedic Felicitas Garcia M75.51 Bursitis of [facility] [place] right shoulder [facility] Office Visit 11/20/2013 10:15a Orthopedic Felicitas Garcia, 719.44 Pain [facility] [place] 727.03 Trigger Finger Acquired Office Visit 10/01/2013 8:50a [facility] Amada Malagon 682.0 Cellulitis & Infectious [place] Corral Abscess Face Diseases Office Visit 09/28/2013 8:20a [facility] Carlos Holm 682.0 Cellulitis & Assoc,pc [place] Abscess Face Hospitalists 578.9 Hemorrhage Gastrointestinal Tract Unspec 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 414.01 Coronary Atherosclerosis [place] Office Visit 09/27/2013 8:19a [facility] Carlos Holm 682.0 Cellulitis & Assoc,pc FelyDJordy Abscess Face Hospitalists 578.9 Hemorrhage Gastrointestinal Tract Unspec 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
[2019-05-20] MEDS ORDERED: Diazepam TAB(*) 5 MG PO ONE ×2 (21:04→22:27)
--- NOTE | 2019-05-20 21:05 | ED ---
Back Pain - HPI Summary HPI Summary: Patient complains of progressive left sided mid back pain after lifting heavy logs 2 weeks ago, and burning with urination 2 days. Patient denies any other injury pain or symptoms, change in urine, change in BM. Medical history is HTN. - History of Current Complaint Chief Complaint: EDBackInjuryPain Stated Complaint: BACK PAIN PER PT Time Seen by Provider: 05/20/19 20:55 Hx Obtained From: Patient Onset/Duration: Sudden Onset, Lasting Weeks Timing: Constant Back Pain Location: Is Discrete @ Severity Initially: Severe Severity Currently: Severe Pain Intensity: 8 Pain Scale Used: 0-10 Numeric Character: Aching, Throbbing Aggravating Symptom(s): Movement Alleviating Symptom(s): Rest Associated Signs And Symptoms: Positive: Negative - Allergies/Home Medications Allergies/Adverse Reactions: Allergies Allergy/AdvReac Type Severity Reaction Status Date / Time No Known Allergies Allergy Verified 05/20/19 20:04 Home Medications: Home Medications Tamsulosin CAP* [Flomax CAP*] 0.4 mg PO DAILY 05/20/19 [History Confirmed ] PMH/Surg Hx/FS Hx/Imm Hx Endocrine/Hematology History: Reports: Hx Diabetes - DIET CONTROLLED Cardiovascular History: Reports: Hx Coronary Artery Disease - 2 CORONARY STENTS , Hx Hypercholesterolemia, Hx Hypertension, Other Cardiovascular Problems/ Disorders - CAD Denies: Hx Congestive Heart Failure, Hx Pacemaker/ICD GI History: Reports: Hx Gastroesophageal Reflux Disease History: Denies: Hx Renal Disease Musculoskeletal History: Reports: Hx Arthritis - ALL OVER Sensory History: Reports: Hx Contacts or Glasses Denies: Hx Hearing Aid Opthamlomology History: Reports: Hx Contacts or Glasses EENT History: Denies: Hx Deafness Psychiatric History: Denies: Hx Panic Disorder - Cancer History Cancer Type, Location and Year: 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 RIGHT SHOULDER, 2009, [facility] [place], [place]. GASTRIC BYPASS, 2002, [place]. LEFT HAND CTR, 2007, [facility] [place] [place]. RIGHT HAND CTR, 2009, [facility] [place] [place]. HERNIA, 1992, [facility] [place] [place]. CARDIAC STENTS - 2007 Hx Anesthesia Reactions: No - Immunization History Date of Tetanus Vaccine: unk Date of Influenza Vaccine: fall 2017 Infectious Disease History: Yes Infectious Disease History: Reports: Hx Hepatitis - HEP C Denies: Traveled Outside the [place] in Last 30 Days - Family History Known Family History: Positive: Cardiac Disease - Social History Alcohol Use: None Hx Substance Use: No Substance Use Type: Reports: None Hx Tobacco Use: Yes Smoking Status (MU): Current Every Day Smoker Type: eCigarettes Review of Systems Constitutional: Negative Eyes: Negative ENT: Negative Cardiovascular: Negative Respiratory: Negative Gastrointestinal: Negative Positive: burning Musculoskeletal: Negative Skin: Negative Neurological: Negative Psychological: Normal All Other Systems Reviewed And Are Negative: Yes Physical Exam - Summary Physical Exam Summary: Tenderness to palpation of the paraspinal muscles on left side of the thoracic spine. No bony point tenderness. Lung sounds clear to auscultation bilaterally. No CVA tenderness bilaterally. PMS intact distally in bilateral lower extremities. Abdomen soft nontender. Triage Information Reviewed: Yes Vital Signs On Initial Exam: Initial Vitals Temp Pulse Resp BP Pulse Ox 98.9 F 91 15 129/75 97 05/20/19 20:01 05/20/19 20:01 05/20/19 20:01 05/20/19 20:01 05/20/19 20:01 Vital Signs Reviewed: Yes Appearance: Positive: Well-Appearing Skin: Positive: Warm Head/Face: Positive: Normal Head/Face Inspection Eyes: Positive: Normal Neck: Positive: Supple Respiratory/Lung Sounds: Positive: Clear to Auscultation Cardiovascular: Positive: Normal Abdomen Description: Positive: Nontender Musculoskeletal: Positive: Normal Neurological: Positive: Normal Psychiatric: Positive: Normal AVPU Assessment: Alert - Reedy Coma Scale Best Eye Response: 4 - Spontaneous Best Motor Response: 6 - Obeys Commands Best Verbal Response: 5 - Oriented Coma Scale Total: 15 Diagnostics - Vital Signs Vital Signs Temp Pulse Resp BP Pulse Ox 05/20/19 20:01 98.9 F 91 15 129/75 97 - Laboratory Lab Statement: Any lab studies that have been ordered have been reviewed, and results considered in the medical decision making process. Back Pain Course/Dx - Course Course Of Treatment: Patient complains of progressive left sided mid back pain after lifting heavy logs 2 weeks ago, and burning with urination 2 days. Patient denies any other injury pain or symptoms, change in urine, change in BM. Medical history is HTN. Vital signs within normal limits. X-ray ribs and chest unremarkable. Moderate improvement in patient's symptoms with Valium 10 mg by mouth and lidocaine patch. Recommended rest for patient and continuation Valium and lidocaine patch treatment at home. Urine negative for UTI. Recommended follow-up with primary care for further evaluation of urine symptoms. Patient understands and approves of plan. - Diagnoses Provider Diagnoses: Back spasm Discharge - Sign-Out/Discharge Documenting (check all that apply): Patient Departure Patient Received Moderate/Deep Sedation with Procedure: No - Discharge Plan Condition: Stable Disposition: HOME Prescriptions: Diazepam TAB(*) [Valium TAB(*)] 5 mg PO TID PRN 2 Days #6 tab MDD 3 tabs PRN Reason: Pain Lidocaine PATCH 5%* [Lidoderm 5% Patch*] 1 patch TRANSDERM DAILY 4 Days #4 patch Patient Education Materials: Muscle Spasm (ED) Referrals: Arjun Daniel MD [Primary Care Provider] - Additional Instructions: Continue take Valium as directed for muscle spasm. Continue to use lidocaine patches as directed. Return to the ED for any new or worsening symptoms. - Billing Disposition and Condition Condition: STABLE Disposition: Home
[2019-05-20] MEDS ORDERED: Lidocaine PATCH 5%* 1 PATCH TRANSDERM SCH (22:00)
[2019-05-20 22:41] LABS: Urine Appearance Clear; Urine Bilirubin Negative (Negative); Urine Blood Negative (Negative); Urine Color Yellow; Urine Glucose Negative (Negative); Urine Ketones Negative (Negative); Urine Nitrite Negative (Negative); Urine Protein Negative (Negative); Urine Specific Gravity 1.014 (1.010-1.030); Urine Urobilinogen Negative (Negative)
[2019-05-20 23:54] VITALS: BP 151/71
[2019-05-21] MEDS ORDERED: Lidocaine Patch REMOVE* 1 NOTE MISC SCH (21:00)
== END 2019-05-20 23:53 | disposition home or self-care (01) ==
LOC: ED 19:59
DX: M62.830 Muscle spasm of back (principal); M85.88 Other specified disorders of bone density and structure, other site; R30.0 Dysuria; E11.9 Type 2 diabetes mellitus without complications; I10 Essential (primary) hypertension; C22.8 Malignant neoplasm of liver, primary, unspecified as to type; Z95.5 Presence of coronary angioplasty implant and graft; F17.290 Nicotine dependence, other tobacco product, uncomplicated
CPT/HCPCS: 81003; 99282; A9270-GY

== ENCOUNTER 2019-07-15 11:45 | Day surgery (SDC) | payer MEDICARE ==
[~2019-07-15 11:45] MED LIST changes: +DiMENhydriNATE IV* 50 MG/ML VIAL IV PUSH PRN; -Famotidine IV* 10 MG/ML 2 ML (20 mg) IV SLOW PU ONE; +HYDROmorphone INJ1* 1 MG/ML SYRINGE IV PRN; -Iohexol 300* (CONTRAST) 10 ML SDV IV ONE; -Lactated Ringers 1000 ML Bag* 1,000 ML IV ONE; +Naloxone* 0.4 MG/ML 1 ML VIAL IV PRN; -Ondansetron INJ* 2 MG/ML VIAL IV ONE; +PROCHLORPERAZINE INJ 5 MG/ML 2 ML VIAL IV PRN; +Scopolamine 1.5 mg* PATCH TRANSDERM PRN; +fentaNYL* 50 MCG/ML 2 ML VIAL (100 MCG VIAL) IV PRN; -fentaNYL* 50 MCG/ML 2 ML VIAL (100 MCG VIAL) IV SLOW PU ONE
[2019-07-15] MEDS ORDERED: ceFAZolin 2 GM in NS PREMIX(*) 2 GM/100 ML BAG IVPB ONE (12:01)
[2019-07-15] MEDS ORDERED: Famotidine IV* 10 MG/ML 2 ML (20 mg) ONE (12:26)
[2019-07-15] MEDS ORDERED: KETAMINE HCL* 50 MG/ML 10 ML VIAL ONE (13:06)
[2019-07-15] MEDS ORDERED: Midazolam* 1 MG/ML 5 ML VIAL (5 MG) ONE (13:06)
[2019-07-15] MEDS ORDERED: fentaNYL* 50 MCG/ML 5 ML VIAL (250 MCG VIAL) ONE (13:06)
[2019-07-15] MEDS ORDERED: HYDROmorphone INJ* 0.5 MG/0.5 ML SYRINGE ONE ×2 (15:14→15:55)
[2019-07-15] MEDS ORDERED: Propofol* 10 MG/ML 20 ML BTL ONE (15:53)
[2019-07-15] MEDS ORDERED: Lidocaine 2% PF * 5 ML VIAL ONE (15:53)
[2019-07-15 17:06] VITALS: BP 136/77
--- NOTE | 2019-07-16 01:59 | OP ---
DATE OF OPERATION: 07/15/19 - [facility] DATE OF : 51 SURGEON: Rex Villegas MD SATELLITE MANAGER: BETHANIE Guardado. An library circulation assistant was needed for the entirety of the case to help with positioning, retraction, and utilized throughout all portions of the case. ANESTHESIOLOGIST: Dr. Cuevas. ANESTHESIA: General with interscalene block. PRE-OP DIAGNOSIS: Right shoulder large tear of the rotator cuff that had been previously repaired. POST-OP DIAGNOSES: Right shoulder mild osteoarthritis with massive rotator cuff tear, biceps tendonitis and tearing, failed rotator cuff repair. OPERATIVE PROCEDURE: Right shoulder arthroscopy with: 1. Extensive glenohumeral debridement including chondroplasty. 2. Arthroscopic biceps tenodesis. 3. Revision decompression with acromioplasty. 4. Rotator cuff repair of massive rotator cuff tear involving the supra and infraspinatus tendons in a double row fashion with augmentation Regeneten patch. IMPLANTS USED: Four Healicoil and two MULTIFIX and one Regeneten patch, size medium. INDICATIONS: Eddi Isaac is a 63-year-old male who has had a previous rotator cuff repair that was done many years ago. He had an acute injury approximately about 4 weeks ago when he landed on his shoulder. He had limitation in his range of motion and significant pain. We diagnosed with him a full thickness tear of the rotator cuff. After extensive discussion of risks and benefits of surgery versus nonoperative treatment, he elected to proceed with surgical treatment. He underwent preoperative medical risk optimization by his various doctors. He is also a chronic pain patient and pain management was discussed with him. After extensive discussion of the risks and benefits, risks included but not limited to bleeding; infection; damage to nerves, vessels , surrounding structures; wound nonhealing; persistent pain; need for surgery; scarring; stiffness; incomplete relief of symptoms; risks of anesthesia. DESCRIPTION OF PROCEDURE: The patient was greeted in the preoperative area by the attending surgeon, correct extremity was marked, consent was confirmed. The patient underwent interscalene nerve block by anesthesiologist after which the patient was brought back to the operative suite, placed in a supine position on the operating table, he then underwent general anesthesia and was placed in the left lateral decubitus position. He was secured with a peg board. An axillary roll was placed. The right shoulder was then prepped and draped in usual sterile fashion beginning with chlorhexidine soap, scrub, and alcohol wipe, and a final prep with ChloraPrep. After appropriate surgical pause indicating site, side, procedure, administration of antibiotics, the standard posterolateral portal was made sharply with an 11 blade. Scope was then introduced into the joint. The joint was examined. There were some chondral changes, grade 3 and grade 2 and 3 changes. The labrum had anterior and posterior fraying. Superior labrum was obviously torn. The biceps had a longitudinal tear as well as subluxation. The subscap appeared to be grossly intact although there was some mild partial thickness tearing. The anterior portal was made in an outside fashion. There was abundant scar to get through as he has had a previous surgery and that made things somewhat challenging. A needle was bent putting this in. The shaver was used to debride back the anterior, posterior, and superior labrum. The undersurface of the rotator cuff had obvious full thickness tearing, but the extent was unable to be assessed. It looked like it was more of a medium size tear. Once the debridement was completed, the attention was directed to subacromial space. The scope was positioned in the subacromial space. Lateral portal was made in an outside-in fashion. Shaver was used to debride back the abundant bursa that was present. This revealed an irregular anterolateral spur. The electrocautery device was to used to skeletonize and then 4-0 oval hua was then used to do an acromioplasty after which the attention was directed to rotator cuff. The shaver was used to debride back the poor quality scar tissue. There was a full thickness tear and then as I was evaluating this, this was a completely irregular tear that was torn more proximal. This involved the larger portion of the tear; it was torn all the way to the level of the glenoid involving the supra and infraspinatus tendon in the entirety. The previous sutures were visualized from his previous repair. These were removed and debrided back. The poor quality tissue was then carefully debrided back. The electrocautery device was used to skeletonize the greater tuberosity. There was abundant scar tissue where it had scarred anteriorly and to and through to the sub deltoid. This required time to release. This was tough thick scar. The case ended up taking about an hour longer than the average rotator cuff repair. After the tissues were mobilized, anchor placement began anteriorly first to do an arthroscopic biceps tenodesis through a separate stab incision anteriorly. Healicoil was placed with good purchase. The bone quality was quite poor, but it was well placed, but one set of the sutures then passed through the biceps in a Lucy type of suture and then the biceps was tenotomized inside the joint. The biceps was then secured with a suture of the extra strand was left for rotator cuff repairing. The 4-0 oval hua and the rasp were then used to gently decorticate for bony bleeding bed. Three more anchors were then placed along the medial aspect of the supraspinatus, one anchor, the bone quality was so poor that it came out, so a second anchor was placed slightly more medial to this with care not to damage the bone. All anchors were placed with excellent purchase and then bone quality, however, was quite poor anteriorly as opposed to posteriorly. Care was taken to remove all the adhesions that were placed including medially, therefore, blunt devices and the electrocautery device were also used to try to release the adhesions to allow for better mobilization. At this point, a #2 OrthoBraid suture was then used to help as a traction stitch to make sure that we were passing the sutures in an appropriate fashion. After the anchors were placed, suture passing began beginning anteriorly with a previously placed biceps anchor, the second pair of sutures were then passed anteriorly in a horizontal mattress configuration. The quality of the tendon was ok but required multiple passes and thus new passing instruments were required as the tip of the passing needle fatigued and broke. No evidence of the small tip was identified and it was deemed not worth taking the repair down for this. The remaining sutures were placed from anterior to posterior in horizontal mattress configuration, at the posterior aspect some of these were placed simply. Suture tying then began beginning anteriorly, this helped to reapproximate the cuff to the greater tuberosity to the footprint. Once the sutures were all tied down, one strand from each one from the very anterior suture and then five more strands from the other anchors were then placed to a MULTIFIX to be passed for anterior lateral row fixation. Then six of the remaining sutures were chosen to place posterolaterally to have a fixation as there were 16 strands, the remaining suture lengths were cut. This helped to nicely reapproximate the footprint as well as compress the cuff. This might be because this patient had a large tear, so a revision surgery decision was made to augment this with a Regeneten patch, which could have some improvement in pain as well as healing. A size medium patch was then chosen and brought to the field to the previously placed stab incisions. The cannulas were placed to help facilitate fixation of the patch medially, the tendon lily were placed with a good purchase. Care was taken not to damage the previous repair below this, laterally the bone lily were also placed. Care was taken not to damage this as well. Final images were obtained. The shoulder was taken through a gentle range of motion. It was found that patch and repair was intact. The wounds were then copiously irrigated with sterile saline. Portals were closed with 3-0 nylon in an interrupted fashion. Sterile-dressings were applied. A Cryo/cuff was applied as well as an UltraSling. He was awoken from anesthesia, transferred to PACU in stable condition. POSTOPERATIVE PLAN: He will be nonweightbearing. He will be in a sling for 6 weeks. He will start physical therapy in 4 weeks. He will be discharged on pain medication and antibiotics. DVT prophylaxis considered but deferred due to no previous personal or family history. [id number]/[facility] #: [id number] MASOOD
== END 2019-07-15 17:18 | disposition home or self-care (01) ==
LOC: OREAST 11:45
PROVIDERS: ATTEND Orthopaedic Surgery
DX: S46.011A Strain of muscle(s) and tendon(s) of the rotator cuff of right shoulder, initial encounter (principal); M75.21 Bicipital tendinitis, right shoulder; M19.011 Primary osteoarthritis, right shoulder; W19.XXXA Unspecified fall, initial encounter; Y92.9 Unspecified place or not applicable; G89.18 Other acute postprocedural pain; I25.10 Atherosclerotic heart disease of native coronary artery without angina pectoris; Z95.5 Presence of coronary angioplasty implant and graft; Z72.0 Tobacco use; I10 Essential (primary) hypertension; M19.90 Unspecified osteoarthritis, unspecified site; K21.9 Gastro-esophageal reflux disease without esophagitis; F41.8 Other specified anxiety disorders; Z85.828 Personal history of other malignant neoplasm of skin; G89.4 Chronic pain syndrome; Z79.899 Other long term (current) drug therapy
CPT/HCPCS: C1713; J0690; J1170; J2250; J2704; J3010

== ENCOUNTER 2019-08-10 12:14 | Emergency (ER) | payer MEDICARE ==
--- OUTSIDE RECORDS SUMMARY | 2019-08-10 12:19 | XMS REPORT | Continuity of Care Document ---
:1955 External Reference #:[id number] Author Name Rex Villegas MD (transmitted by agent of provider Marilyn Maradiaga) Address [address], [place] [address] Care Team Providers Name Role Phone Patient's Choice Care Team Information Licensed Insurance Sales Agent Unavailable Arjun Daniel MD - Family Medicine Care Team Information Licensed Insurance Sales Agent [phone] Problems Active Problems Provider Date Localized, primary osteoarthritis of the shoulder Rex Villegas MD Onset: 02/2018 region Disorder of shoulder Rex Villegas MD Onset: 03/09/2018 Full thickness rotator cuff tear Rex Villegas MD Onset: 03/09/2018 Strain of rotator cuff capsule Rex Villegas MD Onset: 07/25/2019 Social History Type Date Description Comments Sex Unknown ETOH Use Denies alcohol use Tobacco Use Start: Unknown Patient is a current smoker, smokes every day Smoking Status Reviewed: 08/01/19 Patient is a current smoker, smokes every day Allergies, Adverse Reactions, Alerts Description No Known Drug Allergies Medications Active Medications SIG Qnty Indications Ordering Provider Date Meloxicam 1 by mouth 60tabs Rex Villegas MD 05/04/2018 15mg Tablets every day with food Pantoprazole Sodium 1 po bid 90tabs Unknown 40mg Tablets DR Methadone HCL 1 po bid 90tabs Unknown 10mg Tablets Lisinopril 1 po qd 90tabs Unknown 10mg Tablets Metoprolol Tartrate 1 po daily 180tabs Unknown 25mg Tablets Cymbalta 1 po qd 90caps Unknown 60mg Caps DR Part Nitrostat one sl q5min up 25tabs Unknown 0.4mg Tablets to 3 doses prn Sub Rosuvastatin Calcium 1 by mouth Unknown 20mg every day Tablets Tamsulosin HCL 1 by mouth Unknown 0.4mg every day Capsules Aspir-Low 1 by mouth Unknown 81mg Tablets DR every day History Medications Oxycodone-Acetaminophen 1 tabs by mouth 14tabs Rex 07/15/2019 - 5-325mg Tablets every 12 hours as MD Nelly 08/01/2019 needed for post op pain. in addition to methadone per pcp recommendation. short term pain script Cephalexin take 1 by mouth four 12tabs Rex 07/15/2019 - 500mg Tablets times a day x 3 days MD Nelly 07/18/2019 Medications Administered in Office Medication SIG Qnty Indications Ordering Provider Date Triamcinolone (Kenalog) Rex Villegas MD 08/01/2019 Injection Triamcinolone (Adelsoalog) Rex Villegas MD 04/30/2019 Injection Triamcinolone (Kenalog) Rex Villegas MD 04/30/2019 Injection Triamcinolone (Kenalog) Rex Villegas MD 01/31/2019 Injection Triamcinolone (Kenalog) Rex Villegas MD 01/31/2019 Injection Triamcinolone (Kenalog) Rex Villegas MD 09/04/2018 Injection Triamcinolone (Adelsoalog) Rex Villegas MD 09/04/2018 Injection Triamcinolone (Adelsoalog) Rex Villegas MD 05/31/2018 Injection Triamcinolone (Kenalog) Rex Villegas MD 05/31/2018 Injection Triamcinolone (Kenalog) Rex Villegas MD 03/09/2018 Injection Triamcinolone (Kenalog) Rex Villegas MD 03/09/2018 Injection Triamcinolone (Kenalog) Elizabeth Oquendo PA-C 11/30/2017 Injection Depomedrol 40MG Felicitas Garcia M.D. 07/21/2016 Injection Depomedrol 80MG Felicitas Garcia M.D. 11/20/2013 Injection Immunizations Description No Information Available Vital Signs Date Vital Result Comment 08/01/2019 11:03am Height 69 inches 5'9" Weight 140.00 lb Heart Rate 86 /min BP Systolic 100 mmHg BP Diastolic 52 mmHg Body Temperature 95.6 F Pain Level 4 BMI (Body Mass Index) 20.7 kg/m2 07/25/2019 8:23am Height 69 inches 5'9" Weight 140.00 lb Heart Rate 68 /min BP Systolic 110 mmHg BP Diastolic 60 mmHg Body Temperature 97.0 F Pain Level 8 BMI (Body Mass Index) 20.7 kg/m2 Results Description No Information Available Procedures Date Code Description Status 08/01/2019 58913 Inject/Drain Joint/Bursa Major W/O US Completed 07/15/2019 28470 Arthroscopy Biceps Tenodesis Completed 07/15/2019 24683 Arthroscopy Biceps Tenodesis Completed 07/15/2019 98035 Arthroscopy Shoulder,W/Rotator Cuff Repair Completed 07/15/2019 69667 Arthroscopy Shoulder,W/Rotator Cuff Repair Completed 07/15/2019 54267 Arthroscopy,Shoulder Decompression Of Subacromial Space Completed W/Acromio 07/15/2019 49645 Arthroscopy,Shoulder Decompression Of Subacromial Space Completed W/Acromio 04/30/2019 47331 Inject/Drain Joint/Bursa Major W/O US Completed 01/31/2019 02921 Inject/Drain Joint/Bursa Major W/O US Completed Medical Devices Description No Information Available Encounters Type Date Location Provider Dx Diagnosis Office Visit 07/02/2019 [facility] Rex Villegas, S46.011D Strain of 9:00a at [facility] musc/tend the rotator cuff of right shoulder, subs Office Visit 06/21/2019 [facility] Rex Villegas, W19.xxxA Unspecified fall, 9:15a at [facility] initial encounter M75.41 Impingement syndrome of right shoulder S49.91xA Unsp injury of right shoulder and upper arm, init encntr Assessments Date Code Description Provider 08/01/2019 M19.012 Primary osteoarthritis, left shoulder Rex Villegas MD 07/25/2019 M19.011 Primary osteoarthritis, right shoulder Rex Villegas MD 07/25/2019 S46.011A Strain of muscle(s) and tendon(s) of the Rex Villegas MD rotator cuff of right shoulder, initial encounter 07/15/2019 M19.011 Primary osteoarthritis, right shoulder Elizabeth Oquendo PA-C 07/15/2019 M19.011 Primary osteoarthritis, right shoulder Rex Villegas MD 07/15/2019 S46.011A Strain of muscle(s) and tendon(s) of the Elizabeth Oquendo PA-C rotator cuff of right shoulder, initial encounter 07/15/2019 S46.011A Strain of muscle(s) and tendon(s) of the Rex Villegas MD rotator cuff of right shoulder, initial encounter 07/15/2019 M75.21 Bicipital tendinitis, right shoulder BETHANIE Guardado 07/15/2019 M75.21 Bicipital tendinitis, right shoulder Rex Villegas MD 07/02/2019 S46.011D Strain of muscle(s) and tendon(s) of the Rex Villegas MD rotator cuff of right shoulder, subsequent encounter 06/21/2019 W19.xxxA Unspecified fall, initial encounter Rex Villegas MD 06/21/2019 M75.41 Impingement syndrome of right shoulder Rex Villegas MD 06/21/2019 S49.91xA Unspecified injury of right shoulder and Rex Villegas MD upper arm, initial encounter 04/30/2019 M19.012 Primary osteoarthritis, left shoulder Rex Villegas MD 04/30/2019 M75.41 Impingement syndrome of right shoulder Rex Villegas MD 04/30/2019 M75.122 Complete rotator cuff tear or rupture of Rex Villegas MD left shoulder, not 04/30/2019 M19.011 Primary osteoarthritis, right shoulder Rex Villegas MD 01/31/2019 M19.012 Primary osteoarthritis, left shoulder Rex Villegas MD 01/31/2019 M75.122 Complete rotator cuff tear or rupture of Rex Villegas MD left shoulder, not 01/31/2019 M75.41 Impingement syndrome of right shoulder Rex Villegas MD Plan of Treatment Future Appointment(s):08/22/2019 8:15 am - Rex Villegas MD at [facility] at [facility]08/01/2019 - Rex Villegas, MDM19.012 Primary osteoarthritis , left shoulderFollow up:Follow up: As needed Functional Status Description No Information Available Mental Status Description No Information Available Referrals Description No Information Available
--- OUTSIDE RECORDS SUMMARY | 2019-08-10 12:19 | XMS REPORT | Summary of Care ---
:1955 Author Organization [facility] Address [address] [address] Care Team Providers Name Role Phone Arjun Daniel MD Primary Care Provider Reason for Referral Diagnostic Testing (Routine) Status Reason Specialty Diagnoses / Referred By Referred To Procedures Contact Contact Pending Review Diagnoses Coronary artery disease involving shoalwater coronary artery of shoalwater heart, angina presence unspecified Larissa, Procedures ECHOCARDIOGRAM TTE MD Reymundo [facility] [place] [address] Reason for Visit Reason Comments Pre-Op Exam pt is here for pre op clearance for Revision right shoulder arthroscopic rotator cuff repair with Dr. Villegas on 07/15/19 Encounter Details Date Type Department Care Team Description 07/04/2019 Office Visit [facility] Transfer Larissa, Preoperative cardiovascular examination (Primary Dx); Cardiology MD Reymundo Coronary artery disease involving shoalwater coronary artery of shoalwater heart, angina presence unspecified; [address] [facility] [address] [facility] [place] [address] [place] [address] [phone] Allergies Active Allergy Reactions Severity Noted Date Comments Tetanus Antitoxin Unknown Reaction 12/09/2005 Patient states "I don't think that's accurate." documented as of this encounter (statuses as of 07/04/2019) Medications Medication Sig Dispensed Refills Start Date End Date Status Lancets Does not apply by Does not apply 100 5 02/26/2009 Active Misc route DAILY. 3. non-Insulin dependent 4. Test Blood Glucose 1 time(s) A DAY Blood Glucose 100 Strip 3 12/04/2012 Active Monitoring Suppl 2. Precision Xtra (BLOOD GLUCOSE TEST 3. non-Insulin dependent STRIPS STRP) 4. Test Blood Glucose 1 time(s) A DAY Aspirin 81 MG Oral Take 81 mg by 30 Tab 0 08/13/2014 Active TabIndications: CAD mouth EVERY (coronary artery MORNING. disease) Rosuvastatin Calcium 5 Take 1 Tab by 30 Tab 5 04/10/2018 Active MG Oral Tab mouth EVERY BEDTIME. nitroglycerin Place 1 Tab under 25 Tab 0 12/20/2018 Active (NITROSTAT) 0.4 MG tongue EVERY FIVE Sublingual SL Tab MINUTES NEEDED for chest pain. lisinopril (PRINIVIL, Take 1 Tab by 90 Tab 1 02/05/2019 Active ZESTRIL) 10 MG Oral mouth DAILY. Tab ferrous sulfate 325 Take 1 Tab by 30 Tab 2 02/26/2019 Active (65 Fe) MG Oral Tab mouth DAILY. Tamsulosin HCl Take 2 Caps by 180 Cap 0 03/11/2019 Active (FLOMAX) 0.4 MG Oral mouth EVERY Cap BEDTIME. buPROPion (WELLBUTRIN Take 1 Tab by 30 Tab 5 04/29/2019 Active XL) 300 MG Oral TABLET mouth DAILY. SR 24 HR mirtazapine (REMERON) TAKE 1 TABLET 90 Tab 0 05/13/2019 Active 30 MG Oral Tab EVERY BEDTIME DIRECTED pantoprazole TAKE ONE TABLET BY 180 Tab 0 05/13/2019 Active (PROTONIX) 40 MG Oral MOUTH TWICE A DAY Tab EC methadone (METHADOSE) Take 1 Tab by 120 Tab 0 06/03/2019 Active 10 MG Oral Tab mouth EVERY SIX HOURS NEEDED (pain). Max Daily Amount: 40 mg. 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 Recently found to have an elevated alpha- feto protein. Referring Provider:Not in an encounter context. Primary Care Provider: Arjun Daniel Oncologist: Summary of initial evaluation: 09/10/2013 Ultrasound - Hepatomegaly, fatty replacement of the liver. Possibility of hepatic parenchymal disease is there. Gallstones. Gallbladder wall shows thickening of the 4.7 mm 10/28/2013 MRI - Nodular liver consistent w/ cirrhosis. Left lobe lesion 2.2 cm compatible with hepatocellular carcinoma. Gallstones. No cholecystitis or choledocholithiasis. 11/19/2013 CT scan (chest/abd/pelvis) - Morphologic features of cirrhosis. Left lobe liver lesion 2.3 cm AFP:Results for MINIROBIN Alysa ( ) Ref. Range 01/26/2006 08:29 07/17/2008 15:09 09/10/2013 10:18 11/08/2013 14:07 Alpha Fetoprotein Tumor Marker Latest Range: <6.1 NG/ML 2.6 2.2 16.6 (H) 18.0 ( H) Results for MINIROBIN Alysa ( ) Ref. Range 11/26/2013 21:20 11/27/2013 03:40 Total Protein Latest Range: 6.4-8.2 g/dl 6.2 (L) 4.3 (L) Albumin Latest Range: 3.4-5.0 g/dl 3.5 1.9 (L) Alkaline Phosphatase Latest Range: 38-126 U/L 79 42 AST Latest Range: 17-59 U/L 82 (H) 83 (H) ALT Latest Range: <35 IU/L 65 68 Total Bilirubin Latest Range: 0.2-1.3 mg/dl 0.5 0.4 Hepatitis A, B,C: Results for MINIROBIN Alysa ( ) Ref. Range 07/17/2008 15:09 09/10/2013 10:18 HCV HEPTIMAX IU/ML Latest Range: <15 IU/mL <5 <15 HCV HEPTIMAX LOG IU/ Latest Range: <1.18 see fn <0.70 <1.18 Surgical Intervention: 11/26/2013 Hepatic resection segment II/III, cholecystectomy - T1 N0 HCC Pathology: Hepatocellular carcinoma; trabecular pattern, in a background of macronodular cirrhosis. 0/1 lymph node containing metastatic disease Surgical margins clear. Complications: Subhepatic fluid collection - s/p IR drain placement 12/05/2013 VRE w/ treatment of Zyvox and Ancef Delayed ileus. Ascites and bilateral pleural effusions - paracentesis 12/23/2013 Recurrence of ascites and the subhepatic fluid collection - IR drainage 12/10/2013 Again IR drain placement for subhepatic fluid collection - 12/21/2013 Follow-up Evaluation: One year follow up: 03/24/2015 CT scan (abd/pelvis) - Left partial hepatectomy w/ no CT evidence of recurrence or metastatic ds. Hepatic cirrhosis with upper abdominal collateral formation. No evidence of splenomegaly or elías ascites. Multiple subacute appearing right-sided rib fractures 7th, 9th, 10th, and 11th ribs. Negative for pneumothorax. Results for ROBIN MORSE ( ) as of 04/03/2015 09:44 Ref. Range 09/10/2013 10:18 11/08/2013 14:07 03/07/2014 10:17 09/08/2014 08:51 Alpha Fetoprotein Tumor Marker Latest Range: <6.1 NG/ML 16.6 (H) 18.0 (H) 1.2 1.5 2 year follow up: 03/08/2016 MRI - Postoperative changes without evidence of recurrent mass or metastatic disease. 3 year follow up: Lab Results Component Value Date Alpha Fetoprotein Tumor Marker 1.6 03/07/2017 03/14/2017 CT scan (chest/abd/pelvis) - Status post resection segments 2 and 3 of the left lobe of the liver. No evidence of metastatic disease detected. 3.5 year follow-up: 09/2017 CT scan (chest/abd/pelvis) - Status post remote resection of segments 2 and 3 of the liver. No sign of recurrent or new hepatocellular carcinoma. Acute gastrojejunal ulcer with hemorrhage 11/08/2013 Depression 04/02/2013 Tobacco user 04/02/2013 HAZEL (obstructive sleep apnea) 06/23/2010 Overview: Not using due to epistaxis Diabetes mellitus 06/23/2010 GERD (gastroesophageal reflux disease) 06/23/2010 Anemia, unspecified 06/23/2010 Overview: workup negative Dyslipidemia 06/23/2010 Coronary artery disease involving shoalwater coronary artery of shoalwater heart 12/30 Overview: 1.20.09 CATH Mid LAD / a Cypher 3.0-mm by 33-mm stent 08/27/09 Dr. Bassett obtuse marginal branch, which was stented with a Mini vision 2.25 x 28 mm stent Spinal stenosis in cervical region 01/14/2008 Essential hypertension 01/14/2008 Displacement of cervical intervertebral disc without myelopathy 12/09/2005 CIRRHOSIS OF LIVER 10/21/2004 documented as of this encounter (statuses as of 07/04/2019) Resolved Problems Problem Noted Date Resolved Date Coronary artery disease involving shoalwater coronary artery of 02/05/20192018 shoalwater heart Cellulitis of drainage site following surgery 01/31/2014 07/17/2014 Bile leak, postoperative 01/10/2014 03/07/2014 Fatigue 12/20/2013 03/24/2014 Tobacco user 04/17/2011 04/17/2011 BMI 29.0-29.9,adult 04/15/2011 07/17/2014 Overview: This patient's BMI has been calculated and is above average, and BMI management plan is completed. General patient education discussion including: weight loss link to reduction of risk factors for car diac and other diseases, importance of long-term maintenance treatment in weight loss thru diet and exercise Hepatitis C 06/23/2010 04/26/2019 GI bleed 07/17/2009 06/23/2010 Overview: 07/16/09 neg upper and lower endoscopy Angina pectoris 12/30/2008 06/23/2010 Overview: 1.21.09 ECHO ejection fraction is 65% Replaced inactive diagnosis Raynaud's syndrome 01/14/2008 06/23/2010 Chronic Bronchitis 01/14/2008 04/15/2018 Carpal tunnel syndrome 01/14/2008 06/23/2010 Benign neoplasm of colon 01/14/2008 06/23/2010 Nicotine dependence 01/14/2008 12/31/2008 Lipoprotein deficiencies 01/14/2008 08/18/2011 Obesity, unspecified 01/14/2008 07/17/2014 Overview: Gastric Bypass Surgery performed Hepatomegaly 10/21/2004 04/15/2018 documented as of this encounter (statuses as of 07/04/2019) Immunizations Name Administration Dates Next Due Depo Medrol (40mg) 07/24/2014 Hepatitis B Vaccine Adult 10/02/2004 Influenza (IM) Preservative Free 07/23/2018, 08/18/2011, 12/10/2010 Influenza (IM) W/Pres 09/27/2016 documented as of this encounter Social History Tobacco Use Types Packs/Day Years Used Date Current Every Day Smoker Cigarettes 1 40 Quit: 09/20/2013 Smokeless Tobacco: Former User Chew Comments: Pt. vapes Alcohol Use Drinks/Week oz/Week Comments No 0 Standard drinks or equivalent 0.0 Sex Assigned at Date Recorded Not on file Job Start Date Occupation Industry Not on file Not on file Not on file Travel History Travel Start Travel End No recent travel history available. documented as of this encounter Last Filed Vital Signs Vital Sign Reading Time Taken Comments Blood Pressure 118/58 07/04/2019 9:17 AM EDT Pulse 68 07/04/2019 9:17 AM EDT Temperature - - Respiratory Rate - - Oxygen Saturation - - Inhaled Oxygen Concentration - - Weight 67 kg (147 lb 9.6 oz) 07/04/2019 9:17 AM EDT Height 175.3 cm (5' 9") 07/04/2019 9:17 AM EDT Body Mass Index 21.8 07/04/2019 9:17 AM EDT documented in this encounter Patient Instructions Patient InstructionsMcReymundo Ingram MD - 07/04/2019 9:20 AM EDT No medication changes today. OK to proceed to your planned shoulder surgery at an acceptably low cardiac risk. Schedule an echocardiogram in about 1 year and follow up with me shortly after that. documented in this encounter Progress Notes Reymundo Dias MD - 07/04/2019 9:20 AM EDT [facility] Cardiology Note Patient: Robin Morse Date of : 1955 Date of Service: 07/04/2019 REFERRING PRACTITIONER: Rex Villegas PRIMARY CARE PROVIDER: Arjun Daniel Chief Complaint: Chief Complaint Patient presents with Pre-Op Exam pt is here for pre op clearance for Revision right shoulder arthroscopic rotator cuff repair with Dr. Villegas on 07/15/19 History of Present Illness: We had the pleasure of seeing Robin Morse today at the [facility] Cardiology Office. He is a 63-y.o. male with HCV, cirrhosis, hepatocellular CA, HAZEL, HTN, HLD, DM2, and CAD s/p SALVADOR to mLAD 11/14 and OM in 08/14 with in-stent stenosis and PTCA with SALVADOR to OM 06/15/10. Mr. Morse returns to cardiology clinic today for perioperative evaluation prior to undergoing R shoulder surgery with Dr. Villegas on 07/15. Since his last visit with me, he reports feeling generally well. He denies any limiting dyspnea or exertional CP and can easily climb 2 flights of stairs withouta problem. Denies any palpitations or syncope but still has mild lightheadedness with standing quickly. No orthopnea or paroxysmal dyspnea, and he continues to have some lower extremity edema but that is improved compared to his prior visit. Energy was significantly improved after his iron infusiona couple of months ago, but that energy has since waned a bit in the last month. Patient Active Problem List Diagnosis CIRRHOSIS OF LIVER Displacement of cervical intervertebral disc without myelopathy Spinal stenosis in cervical region Essential hypertension Coronary artery disease involving shoalwater coronary artery of shoalwater heart HAZEL (obstructive sleep apnea) Diabetes mellitus (HCC) GERD (gastroesophageal reflux disease) Anemia, unspecified Dyslipidemia Depression Tobacco user Acute gastrojejunal ulcer with hemorrhage History of HCC (hepatocellular carcinoma) s/p segment II/III hepatic resection Abdominal pain Incisional hernia IgM deficiency (HCC) Chest pain Candidal esophagitis (HCC) Epididymo-orchitis Occult blood positive stool History of liver cancer History of hepatitis C History of surgery of liver Past Medical History: Diagnosis Date Acute gastrojejunal ulcer with hemorrhage, without mention of obstruction 11/08/2013 Anemia 2009 egd ok ? malabsorb c scope negative Bleeding ulcer 10/2013 Marginal Ulcer at gastrojejunostomy also 2018 with anemia BMI 29.0-29.9,adult 04/15/2011 CAD 2009 stent LAD 11/14 and obtuse marginal 07/15 and 06/15 Calculus of ureter 05/31/2006 Sandra esophagitis (HCC) 2018 Carpal tunnel syndrome 01/14/2008 s/p surgery Cellulitis of drainage site following surgery 01/31/2014 Chronic Bronchitis 01/14/2008 CIRRHOSIS OF LIVER 10/21/2004 due to Hep C Depression 04/02/2013 Diabetes was better after surgery Diverticulosis 11/20 5 years dyslipidemia 01/14/2008 Fatigue 12/20/2013 GERD HCC (hepatocellular carcinoma) (HCC) 11/2013 s/p segmental hepatic resection Hemorrhoids 2018 5 year Hepatitis C Hepatomegaly 10/21/2004 Hypertension 01/14/2008 Obstructive Sleep Apnea not using due to epistaxis Pulmonary nodules 01/2019 1 year Raynaud's syndrome 01/14/2008 Spinal stenosis in cervical region 01/14/2008 s/p surgery Tobacco user 04/02/2013 Past Surgical History: Procedure Laterality Date ANGIOPLASTY STENT CORONARY VIA GROIN 06/15/2010 Procedure:ANGIOPLASTY STENT CORONARY; Surgeon:KACEY BASSETT; Location:[facility] CCL ; Laterality:N/A; CORONARY ART/PREDIL & SALVADOR OF OM VIA RT RADIAL & HEMOBAND CARDIAC STRESS TEST NEC 04/17 negative [facility] CATHETERIZATION HEART LEFT N/A 04/15/2015 Procedure: CATHETERIZATION HEART LEFT; Surgeon: Lan Mobley MD; Location: [facility] CCL COLONOSCOPY N/A 12/05/2014 5 years tics COLONOSCOPY N/A 03/16/2018 Procedure: COLONOSCOPY; Surgeon: Konstantin Ramon DO; Location: [facility] MAIN OR COLONOSCOPY N/A 03/21/2019 Procedure: COLONOSCOPY; Surgeon: Konstantin Ramon DO; Location: [facility] MAIN OR CYSTOSCOPY NEC 9.1.2006 CYSTOSCOPY NEC 8.25.2006 EGD N/A 03/25/2014 Procedure: ENDOSCOPY UPPER GI with biopsy; Surgeon: Charles Owens MD; Location: [facility] MAIN OR;Laterality: N/A; EGD N/A 05/22/2014 Procedure: ENDOSCOPY UPPER GI-GJ junction ulcer; Surgeon: Annette Cates MD; Location: [facility] MAIN OR; Laterality: N/A; EGD N/A 12/05/2014 Procedure: ENDOSCOPY UPPER GI; Surgeon: French Deras Jr., MD; Location : [facility] MAIN OR EGD N/A 03/16/2018 Procedure: ENDOSCOPY UPPER GI WITH BIOPSY; Surgeon: Konstantin Ramon DO; Location: [facility] MAIN OR EGD N/A 03/21/2019 Procedure: ENDOSCOPY UPPER GI; Surgeon: Konstantin aRmon DO; Location: [facility] MAIN OR HIGH GASTRIC BYPASS 2004 Ariane; Dr. Aquino LEFT HEART CATH,RETROGGRADE,FRO 07/28/09 Dr. Bassett: 2.25 x 28-mm MiniVision stent proximal first obtuse marginal branch. Patent stent in the mid-left anterior descending artery. LEFT HEART CATH,RETROGGRAD,FRO 11/25/08 Dr. Bassett: Cypher 3.0-mm by 33-mm stent mid left anterior descending OTHER MISC PROCEDURES 2.9.2005 C4-C5 discectomy PARTIAL HEPATECTOMY 11/26/2013 resection segment II/III - HCC DC COLONOSCOPY FLX DX W/COLLJ SPEC WHEN PFRMD . DC EGD TRANSORAL BIOPSY SINGLE/MULTIPLE 12..2003 Allergies Allergen Reactions Tetanus Antitoxin Unknown Reaction Patient states "I don't think that's accurate." Current Outpatient Medications Medication Aspirin 81 MG Oral Tab Blood Glucose Monitoring Suppl (BLOOD GLUCOSE TEST STRIPS STRP) buPROPion (WELLBUTRIN XL) 300 MG Oral TABLET SR 24 HR duloxetine (CYMBALTA) 60 MG Oral CAPSULE ENTERIC COATED PARTICLES ferrous sulfate 325 (65 Fe) MG Oral Tab Lancets Does not apply Misc lisinopril (PRINIVIL, ZESTRIL) 10 MG Oral Tab methadone (METHADOSE) 10 MG Oral Tab mirtazapine (REMERON) 30 MG Oral Tab nitroglycerin (NITROSTAT) 0.4 MG Sublingual SL Tab pantoprazole (PROTONIX) 40 MG Oral Tab EC Rosuvastatin Calcium 5 MG Oral Tab Tamsulosin HCl (FLOMAX) 0.4 MG Oral Cap Family History Problem Relation Age of Onset Cancer Mother pancreatic Diabetes Mother Heart Disease Father CABG Diabetes Father Colon Cancer Father Social History Socioeconomic History Marital status: Spouse name: Not on file Number of children: Not on file Years of education: Not on file Highest education level: Not on file Occupational History Not on file Social Needs Financial resource strain: Not on file Food insecurity: Worry: Not on file Inability: Not on file Transportation needs: Medical: Not on file Non-medical: Not on file Tobacco Use Smoking status: Current Every Day Smoker Packs/day: 1.00 Years: 40.00 Pack years: 40.00 Types: Cigarettes Last attempt to quit: 09/20/2013 Years since quittin.7 Smokeless tobacco: Former User Types: Chew Tobacco comment: Pt. vapes Substance and Sexual Activity Alcohol use: No Alcohol/week: 0.0 standard drinks Drug use: No Sexual activity: Not on file Lifestyle Physical activity: Days per week: Not on file Minutes per session: Not on file Stress: Not on file Relationships Social connections: Talks on phone: Not on file Gets together: Not on file Attends latter day service: Not on file Active member of club or organization: Not on file Attends meetings of clubs or organizations: Not on file Relationship status: Not on file Intimate partner violence: Fear of current or ex partner: Not on file Emotionally abused: Not on file Physically abused: Not on file Forced sexual activity: Not on file Other Topics Concern Not on file Social History Narrative Lives in [place], retired from [employer]. Review of Systems - Negative except as noted in HPI. Physical Exam: Vitals: 07/04/19 0917 BP: 118/58 BP Location: Right arm Patient Position: Sitting Pulse: 68 Weight: 147 lb 9.6 oz (67 kg) Height: 5' 9" (1.753 m) Body mass index is 21.8 kg/m. General: Thin, alert 63-y.o. male in NAD. HEENT: anicteric, MMM, no E/E OP, conj pink Neck: JVP approx 4-5 cm above RA, no carotid bruits or LAD CV: RRR, normal s1/s2, with no appreciable M/R/G. Pulm: CTA bilaterally without wheezes, rhonchi, or rales. No increased work of breathing. Abd: soft, ND, +BS. + old midline longitudinal surgical scar again noted. + hepatomegaly with verymild tenderness to palpation Ext: Trace LE edema improved from prior, no cyanosis, no cords, redness, or warmth, 1+ distal pulses. Neuro: no gross focal deficits Skin: no visible lesions Labs: Lab Results Component Value Date NA 139 05/08/2019 K 3.8 05/08/2019 CL 107 05/08/2019 CO2 22 05/08/2019 GLUCOSE 141 (H) 05/08/2019 BUN 32 (H) 05/08/2019 CREATININE 0.7 (L) 05/08/2019 CALCIUM 8.6 05/08/2019 TP 6.5 05/08/2019 ALBUMIN 3.6 05/08/2019 AST 51 05/08/2019 ALT 42 05/08/2019 ALK 92 05/08/2019 TBILI 0.3 05/08/2019 Lab Results Component Value Date NT PRO BNP 113 03/21/2019 Lab Results Component Value Date CHOL 132 02/05/2019 TRIG 101 02/05/2019 HDL 44 02/05/2019 LDL 68 02/05/2019 LDLHDLRATIO 1.5 02/05/2019 CHOLHDLRATIO 3.0 02/05/2019 Cardiac Studies: EKG Today (I personally reviewed): NSR in 70s. Delayed R wave progression and nonspecific inferior ST segment abnormality. Dobutamine Stress Echocardiogram 08/23/2017: Baseline Echocardiogram: Concentric LV remodeling with mild left atrial enlargement. Normal LV systolic function with estimated LVEF 55-60%. There is very mild hypokinesis of the basal to mid inferior wall segments at rest. Normal right heart size and RV contractility. Trivial aortic regurgitation. Mild tricuspid and mitral regurgitation. No pericardial effusion. FINAL IMPRESSION: Appropriate heart rate and blood pressure response to dobutamine. This test is equivocal for ischemia by symptoms (atypical chest pain), negative for ischemia by EKG, and negative for ischemia by echocardiographic imaging at an adequate cardiac workload, as described. Very mild resting inferior wall motion abnormality with good augmentation of contractility post stress. Left Heart Cath 04/15/2015: SELECTIVE CORONARY ANGIOGRAPHY: 1. LEFT MAIN CORONARY ARTERY: The left main coronary artery is a large caliber vessel, gives rise to left anterior descending, ramus intermedius, and left circumflex arteries. The left main does not show any stenosis. 2. LEFT ANTERIOR DESCENDING CORONARY ARTERY: The left anterior descending coronary artery is a large caliber vessel. It reaches the apex and wraps around the apex. It gives rise to one diagonal branch. The left anterior descending beyond the diagonal branch in its mid segment has a patent stent with no significant in-stent restenosis. The rest of the left anterior descending and its branches show some mild luminal irregularities without any significant focal stenosis. 3. RAMUS INTERMEDIUS: The ramus intermedius is a medium to large caliber vessel that has a patent stent in its proximal portion without any significant in-stent restenosis. 4. LEFT CIRCUMFLEX CORONARY ARTERY: The left circumflex coronary artery is a small caliber nondominant vessel, gives rise to small posterolateral branches. The left circumflex artery and its branches do not show significant disease. 5. RIGHT CORONARY ARTERY: The right coronary artery is a large caliber dominant vessel, gives rise to a medium caliber right posterior descending artery, and continues in the AV groove and gives rise to a large right posterolateral branch. The right coronary artery in its mid segment has mild stenosis of about 30% to 40%, which is tubular and also the right posterior descending artery has mild diffuse disease. The rest of the right coronary artery and its branches do not show any significant focal obstructive disease. LEFT HEART CATHETERIZATION: Left ventricular end-diastolic pressure is 21 mmHg. No gradient is noticed across the aortic valve. SUMMARY: 1. Patent left anterior descending and ramus intermedius stents. 2. High normal left ventricular filling pressures. TTE 04/08/2015: FINAL IMPRESSION: Normal left heart size. Normal LV systolic function with no regional wall motion abnormalities; estimated LVEF 60-65%. Normal right heart size and RV systolic function. No structurally or hemodynamically significant valvular disease. Estimated normal pulmonary arterial systolic pressure. No pericardial effusion. Assessment & Plan: Robin Morse is a 63-y.o. male with HCV, cirrhosis, hepatocellular CA, HAZEL, HTN, HLD, DM2, and CAD s/p SALVADOR to mLAD 11/14 and OM in 08/14 with in-stent stenosis and PTCA with SALVADOR to OM 06/15/10. ICD-9-CM ICD-10-CM 1. Preoperative cardiovascular examination V72.81 Z01.810 AMBULATORY 12 LEAD EKG (GLOBAL) 2. Coronary artery disease involving shoalwater coronary artery of shoalwater heart, angina presence unspecified 414.01 I25.10 ECHOCARDIOGRAM TTE 3. Lower extremity edema 782.3 R60.0 1. Perioperative Risk Assessment: According to the [employer] Perioperative Cardiac Risk Assessment Tool,Robin Morse has an estimated risk for perioperative DC or cardiac arrest with noncardiac surgeryof approximately 0.16%. According to the Revised Cardiac Risk Index, his estimated risk for perioperative DC, PE, cardiac arrest, or complete heart block with noncardiac surgery is approximately 0.4%.His functional status is greater than 4 METs, and he exhibits no signs of angina or decompensated CHF at this time. In order to further evaluate and/or attenuate this patient's risk, I recommend the following : No further cardiac testing is needed, and he can proceed to surgery at an acceptably low cardiac risk as detailed above. If 81mg of aspirin can be continued perioperatively that would be ideal, but if it needs to be held it can be for 5 days prior to surgery. 2. Coronary Artery Disease, s/p PCI to mLAD and OM: No current anginal symptoms. Antiplatelets: Cont ASA 81mg daily. Statin: Cont Crestor 5mg daily. LDL has been less than 70 on this dose, and given his liver disease I think risk>benefit for using a higher dose. Beta-argenis: Off BB, but LVEF OK and no prior DC. JUAN MANUEL-inhibitor: Cont lisinopril. Other: Checking a resting echo in ~1 year to ensure no change in LV function. Thank you for allowing me to participate in the care of Robin Morenojoy. We will plan on f/u in our office in ~1 year (shortly after his echo) or sooner prn. If you have any questions or concerns please feel free to call our office at . Reymundo Dias MD, 07/04/2019, 09:52 This note was created using my previous note as a template; changes were made where appropriate, andall information in the current note is up to date to the best of my knowledge.Electronically signed by Reymundo Dias MD at 2018 9:52 AM EDTdocumented in this encounter Plan of Treatment Date Type Specialty Care Team Description 09/17/2019 Office Visit Family Practice Arjun Daniel MD [address] [place] [address] [phone] Name Type Priority Associated Diagnoses Order Schedule AMBULATORY 12 LEAD EKG EKG Routine Preoperative Ordered: 07/04/2019 (GLOBAL) cardiovascular examination ECHOCARDIOGRAM TTE CV Lab Routine Coronary artery disease Expected: involving shoalwater coronary 06/08/2020 artery of shoalwater heart, (Approximate), angina presence Expires: 08/07/2020 unspecified Health Maintenance Due Date Last Done Comments Diabetic Eye Exam 1955 MEDICARE ANNUAL WELLNESS 1955 VISIT ZOSTER IMMUNIZATION SERIES 2003 (1 of 2) PNEUMOCOCCAL 65+YRS (1 of 2 2018 - PCV13) FOOT EXAM 01/26/2019 01/26/2018, 01/26/2018 INFLUENZA VACCINE (#1) 2019 07/23/2018, 09/27/2016, 08/18/2011, Additional history exists HEMOGLOBIN A1C 08/07/2019 02/05/2019, 07/23/2018, 01/26/2018, Additional history exists FALL RISK ASSESSMENT 10/23/2019 10/23/2018, 10/23/2018 LIPID DISORDER SCREENING 02/06/2020 02/05/2019, 04/04/2018, 01/26/2018, Additional history exists LUNG CANCER SCREENING 03/21/2020 03/21/2019, 09/21/2017, 07/20/2017, Additional history exists DEPRESSION SCREENING 03/25/2020 03/25/2019 COLONOSCOPY SCREENING 03/21/2024 03/21/2019, 03/21/2019, 03/16/2018, Additional history exists AAA SCREENING/SURVEILLANCE Completed 08/07/2018, 09/21/2017, 03/14/2017, Additional history exists HPV IMMUNIZATION SERIES Aged Out No longer eligible based on patient's age to complete this topic MENINGOCOCCAL VACCINE IMM Aged Out No longer eligible based on patient's age to complete this topic documented as of this encounter Goals Goal Patient Goal Associated Recent Patient-Stated? Author Type Problems Progress Blood Pressure Blood Pressure Essential 118/58 No María, < 140/90 hypertension (07/04/2019 MD Arjun 9:17 AM EDT) Note: Hypertension Care Plan Based on the patient's clinical history and according to JNC 8 guidelines target blood pressure goal is less than 140/90. Based on the patient's last blood pressure of BP: 100/60 mmHg the patient is at at goal. As your provider, it is important that I advise you regarding: your current medications and help you with any challenges you may face taking your medications as directed (ex. instructions, cost, side effects, and interactions). lifestyle changes: exercise, diet, dietary sodium reduction, medication compliance and smoking cessation your clinical goals and how you can achieve success: exercise plan, diet improvements and smoking cessation medication management: adjusted medications as appropriate the availability of a healthcare risk control consultant to help you with your Hypertension patient education/self-management tools provided: Current self-management tools adequate To successfully manage my Hypertension I will: monitor my blood pressure , understanding that my goal is less than 140/90 per my healthcare provider's recommendation. I will schedule an appointment with my provider if consistent abnormal readings greater than 160/100. take medications every day as prescribed by my healthcare provider and if unable to take them I will discuss with my provider. monitor for symptoms of chest pain, chest tightness/pressure, irregular heartbeat, persistent dizziness, radiating arm pain, and neck or jaw pain. If any of these symptoms are noticed I will seek medical attention immediately by calling 911 exercise/walk 15 minutes 7 day(s) per week. If I experience chest pain, chest tightness, or shortness of breath, I will seek medical attention immediately. follow a diet rich in fruits, vegetables, and low-fat dairy products with reduced content of saturated & total fat. I will reduce my sodium intake daily. An example is the DASH diet. To obtain more information please refer to the DASH Eating Plan listed in Educational Resources. record my blood pressure results. Teje is safe and secure way for you to do this in your medical record online. try to obtain an ideal body weight. My recent weight was Weight: 155 lb 12.8 oz (70.67 kg). My weight loss goal for my next office visit is 160. limit alcohol consumption. For men two drinks per day and women one drink per day. if currently smoking, will discuss how to quit smoking with my healthcare provider and work towards quitting. Educational Resources: National Heart, Lung, & Blood [place] http://nhlbi.nih.gov/hbp/index.html The DASH Diet Eating Plan http://www.nhlbi.nih.gov/health/health-topics/ topics/dash/ Academy of Nutrition & DIetetics http://eatright.org National Smoking Cessation Site http://smokefree.gov Blood Pressure < 140/90 Blood Pressure 118/58 (07/04/2019 9:17 No Arjun Daniel MD AM EDT) Note: This is an individualized treatment (blood pressure) goal for Robin Morse: Displayed above (on the left) is your goal for blood pressure control. Your most recent blood pressure is also shown above, on the right. You should try to achieve blood pressures that are lower than your goal listed above (on the left). Depression screen (PHQ-9) total score < 5 Depression No Arjun Daniel MD Note: This is an individualized treatment (depression) goal for Robin Morse: Displayed above is your goal for a depression screening (PHQ-9) score that would indicate good control of your depression. Glycohemoglobin A1c < 7.0 Diabetes 5.0 (02/05/2019 12:20 PM No Arjun Daniel MD EDT) Note: This is an individualized treatment (diabetes control, HgbA1C) goal for Robin Morse: Displayed above is your progress towards your HgbA1C goal. Your goal is shown above (on the left); your most recent HgbA1C is shown on the right. Note that lower numbers are better. Keep a regular sleep schedule Lifestyle No Arjun Daniel MD Note: This is an individualized lifestyle goal for Robin Morse: Please maintain a regular sleep schedule. This may help with some symptoms of depression. Keep immunizations current Lifestyle No Arjun Daniel MD Note: This is an individualized lifestyle goal for Robin Morse: Please be sure to keep up-to-date on recommended immunizations. For example, this would include a yearly influenza vaccine. Immunization status can be seen by looking at the Health Maintenance sections of your e[facility], Plan of Care, and any After Visit Summaries. Take all prescribed medications as directed Self-management No Arjun Daniel MD Note: This is an individualized self-management goal for Robin Morse: Please take all prescribed medications as directed. 1. Do not skip doses. If you cannot afford your medications, talk with your doctor. 2. Use a pill reminder system such as a pill box if needed. Your pharmacist can help you with this. 3. Contact your Pharmacy 5 days before your medication runs out. If you cannot take your medications for any reasons, talk with your doctor. 4. Please bring all of your medication bottles and inhalers (or a list of all your medications/inhalers) with you to every visit. Potential barriers to meeting all of your care plan goals will continue to be addressed on an ongoing basis. documented as of this encounter Implants Implanted Type Area Power Digger Operator Device Shelf Model / Identifier Expiration Date Serial / Lot 3.033 Cypher Rx Salvador - [id number] LAD CORDIS [id number] / Implanted: Qty: 1 on 11/25/2008 at [facility] / [id number] 2.25/28mm Mini Vision Stent - [id number] [employer] [id number] / Implanted: Qty: 1 on 07/28/2009 at [facility] / [id number] Description:OM 2.5 / 18 Xience - [id number] Obtuse Marginal ROY [employer]ULAR [id number] / Implanted: Qty: 1 on 06/15/2010 at [facility] [id number] / [id number] Ventralight Mesh 6" X 10" - [id number] N/A: Abdomen [employer] 2015 [id number] / Implanted: Qty: 1 on 08/26/2014 by French Ribeiro MD at [facility] / [id number] documented as of this encounter Results Not on filedocumented in this encounter Visit Diagnoses Diagnosis Preoperative cardiovascular examination - Primary Pre-operative cardiovascular examination Coronary artery disease involving shoalwater coronary artery of shoalwater heart, angina presence unspecified Lower extremity edema Edema documented in this encounter Additional Health Concerns Infection Noted Time Resolved Time VRE 12/09/2013 8:57 AM EST documented as of this encounter Insurance Payer Benefit Plan / Subscriber ID Effective Dates Phone Address Type Group [employer] EXCELLUS xxxxxxxxxxxx 2017-Present [employer] MEDICARE BLUE PPO ([id number]) Guarantor Name Account Type Relation to Date of Phone Billing Patient Address Robin Morse Personal/Family 1955 [address] (Home) [place], [place] [phone] (Work) documented as of this encounter Advance Directives Code Status Date Activated Date Inactivated Comments Full Code 05/02/2019 6:59 PM Does the patient have decision making Yes capacity? Order was discussed with: Unable to determine at this time I discussed all options and Unable to determine at this time (full patient/surrogate requested and agreed to: code until choice is made and new order placed) Full Code 03/12/2019 8:19 AM 03/15/2019 5:46 PM Does the patient have decision making capacity? Yes Order was discussed with: Patient I discussed all options and patient/surrogate requested and agreed to: Full Code
--- OUTSIDE RECORDS SUMMARY | 2019-08-10 12:19 | XMS REPORT | Continuity of Care Document ---
:1955 External Reference #:[id number] Author Name Rex Villegas MD (transmitted by agent of provider Marilyn Maradiaga) Address [address], [place] [address] Care Team Providers Name Role Phone Patient's Choice Care Team Information Drug Abuse Worker Unavailable Arjun Daniel MD - Family Medicine Care Team Information Drug Abuse Worker Problems Active Problems Provider Date Full thickness rotator cuff tear Rex Villegas MD Onset: 03/09/2018 Disorder of shoulder Rex Villegas MD Onset: 03/09/2018 Localized, primary osteoarthritis of the shoulder Rex Villegas MD Onset: 02/2018 region Social History Type Date Description Comments Sex Unknown ETOH Use Denies alcohol use Tobacco Use Start: Unknown Patient is a current smoker, smokes every day Smoking Status Reviewed: 06/21/19 Patient is a current smoker, smokes every [...] mouth Unknown 81mg Tablets DR every day Medications Administered in Office Medication SIG Qnty Indications Ordering Provider Date Triamcinolone (Kenalog) Rex Villegas MD 04/30/2019 Injection [...] Available Vital Signs Date Vital Result Comment 06/21/2019 9:23am Height 67.75 inches 5'7.75" Weight 152.00 lb Heart Rate 85 /min BP Systolic 104 mmHg BP Diastolic 60 mmHg Body Temperature 99.0 F Pain Level 5 BMI (Body Mass Index) 23.3 kg/m2 04/30/2019 8:55am Height 67.75 inches 5'7.75" Weight 152.00 lb BP Systolic 130 mmHg BP Diastolic 78 mmHg Respiratory Rate 18 /min Pain Level 4 BMI (Body Mass Index) 23.3 kg/m2 Results Description No Information Available Procedures Date Code Description Status 04/30/2019 92320 Inject/Drain Joint/Bursa Major W/O US Completed 01/31/2019 91816 Inject/Drain Joint/Bursa Major W/O US Completed Medical Devices Description No Information Available Encounters Description No Information Available Assessments Date Code Description Provider 06/21/2019 W19.xxxA Unspecified fall, initial encounter Rex Villegas MD 06/21/2019 M75.41 Impingement syndrome of right shoulder Rex Villegas MD 04/30/2019 M19.012 Primary osteoarthritis, left shoulder Rex Villegas MD 04/30/2019 M75.41 Impingement syndrome of right shoulder Rex Villegas MD 04/30/2019 M75.122 Complete rotator cuff tear or rupture of left Rex Villegas MD shoulder, not 04/30/2019 M19.011 Primary osteoarthritis, right shoulder Rex Villegas MD 01/31/2019 M19.012 Primary osteoarthritis, left shoulder Rex Villegas MD 01/31/2019 M75.122 Complete rotator cuff tear or rupture of left Rex Villegas MD shoulder, not 01/31/2019 M75.41 Impingement syndrome of right shoulder Rex Villegas MD Plan of Treatment Future Appointment(s):08/01/2019 9:00 am - [facility] MD at [facility]/21/2019 - Rex Villegas MDW19.xxxA Unspecified fall, initial encounterNew Xrays:MRI Shoulder Right W/O, Ordered: 06/21/19Follow up: Follow up: after MRIM75.41 Impingement syndrome of right shoulder Functional Status Description No Information Available Mental Status Description No Information Available Referrals Description No Information Available
--- OUTSIDE RECORDS SUMMARY | 2019-08-10 12:19 | XMS REPORT | Continuity of Care Document ---
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 In addition to methadone per PCP recommendation. Short term pain script Cephalexin take 1 by mouth 12tabs Rex Villegas MD 07/15/2019 500mg four times a day Tablets x 3 days Meloxicam 1 by mouth every 60tabs Rex Villegas MD 05/04/2018 15mg Tablets day with food Pantoprazole Sodium 1 po bid 90tabs Unknown 40mg Tablets DR Methadone HCL 1 po bid 90tabs Unknown 10mg Tablets Lisinopril 1 po qd 90tabs Unknown 10mg Tablets Metoprolol Tartrate 1 po daily 180tabs Unknown 25mg Tablets Cymbalta 1 po qd 90caps Unknown 60mg Caps Part Nitrostat one sl q5min up 25tabs Unknown 0.4mg Tablets to 3 doses prn Sub Rosuvastatin Calcium 1 by mouth every Unknown day 20mg Tablets Tamsulosin HCL 1 by mouth every Unknown 0.4mg day Capsules Aspir-Low 1 by mouth every Unknown 81mg Tablets day DR Medications Administered in Office Medication SIG Qnty [...] Available Vital Signs Date Vital Result Comment 07/25/2019 8:23am Height 69 inches 5'9" Weight 140.00 lb Heart Rate 68 /min BP Systolic 110 mmHg BP Diastolic 60 mmHg Body Temperature 97.0 F Pain Level 8 BMI (Body Mass Index) 20.7 kg/m2 07/02/2019 8:09am Height 69 inches 5'9" Weight 140.00 lb Heart Rate 68 /min BP Systolic 120 mmHg BP Diastolic 58 mmHg Pain Level 7 BMI (Body Mass Index) 20.7 kg/m2 Results Description No Information Available Procedures Date Code Description Status 07/15/2019 20921 Arthroscopy Biceps Tenodesis Completed 07/15/2019 97976 Arthroscopy Biceps Tenodesis Completed 07/15/2019 51150 Arthroscopy Shoulder,W/Rotator Cuff Repair Completed 07/15/2019 58056 Arthroscopy Shoulder,W/Rotator Cuff Repair Completed 07/15/2019 34663 Arthroscopy,Shoulder Decompression Of Subacromial Space Completed W/Acromio 07/15/2019 83579 Arthroscopy,Shoulder Decompression Of Subacromial Space Completed W/Acromio 04/30/2019 77024 Inject/Drain Joint/Bursa Major W/O US Completed 01/31/2019 71752 Inject/Drain Joint/Bursa Major W/O US Completed Medical Devices Description No Information Available Encounters Type Date Location Provider Dx Diagnosis Office Visit 07/02/2019 [facility]opedic Rex Villegas, S46.011D Strain of 9:[facility] mus[facility]/tend the rotator cuff of right shoulder, subs Office Visit 06/21/2019 [facility]opedic Rex Villegas, W19.xxxA Unspecified fall , 9:15a [facility] initial encounter M75.41 Impingement syndrome of right shoulder S49.91xA Unsp injury of right shoulder and upper arm, init encntr Assessments Date Code Description Provider 07/25/2019 M19.011 Primary osteoarthritis, right shoulder Rex [...] 8:15 am - Rex [facility] MD [facility]07/25/2019 - Rex Villegas MDM19.011 Primary osteoarthritis, right lpybvpckQ51.011A Strain of muscle(s) and tendon(s) of the rotator cuff of right shoulder, initial encounterNew Therapy:Physical TherapyFollow up:Follow up : 4 weeks Functional Status Description No Information Available Mental Status Description No Information Available Referrals Description No Information Available
[2019-08-10 12:25] VITALS: BP 113/75
--- NOTE | 2019-08-10 12:28 | UC ---
Hand/Wrist HPI - HPI Summary HPI Summary: Patient is a 63yo male presenting with for left wrist pain, redness, and swelling x3 days. Patient states he had a small abrasion to his skin that he believes may have been a splinter. States he was able to express drainage from the wrist last night. Patient also notes pain with wrist movement and finger flexion. Notes the redness spread up his arm today within a matter of a few hours. Denies fever, chills, nausea, and vomiting. - History Of Current Complaint Chief Complaint: UCUpperExtremity Stated Complaint: wrist complaint Hx Obtained From: Patient, Family/Electronics Test Engineer Onset/Duration: Gradual Onset, Lasting Days Severity Currently: Moderate Pain Intensity: 6 Pain Scale Used: 0-10 Numeric - Allergies/Home Medications Allergies/Adverse Reactions: Allergies Allergy/AdvReac Type Severity Reaction Status Date / Time No Known Allergies Allergy Verified 08/10/19 12:25 Home Medications: Home Medications DULoxetine DR CAP* [Cymbalta CAP*] 60 mg PO BID 08/10/19 [History Confirmed 03/24] PMH/Surg Hx/FS Hx/Imm Hx Cardiovascular History: Hypertension - Surgical History Surgical History: Yes Surgery Procedure, Year, and Place: CSP FUSION SURGERY( DENIES METAL), 2000, [facility]. RIGHT SHOULDER - ARTHROSCOPIC 2009 - ( [place] H[place]WARE), [facility]. GASTRIC BYPASS, 2002, [place]. LEFT HAND CTR, 2007, [facility]. RIGHT HAND CTR, 2009, [facility]. HERNIA, 1992, [facility]. CARDIAC STENTS - 2007. rotator cuff right - Family History Known Family History: Positive: Cardiac Disease - Social History Alcohol Use: None Substance Use Type: None Smoking Status (MU): Current Every Day Smoker Type: eCigarettes Amount Used/How Often: VAPE Have You Smoked in the Last Year: Yes Household Exposure Type: Cigarettes - Immunization History Most Recent Influenza Vaccination: 2012 Most Recent Tetanus Shot: "no idea" Most Recent Pneumonia Vaccination: unsure Review of Systems All Other Systems Reviewed And Are Negative: Yes Constitutional: Positive: Negative. Negative: Fever, Chills Skin: Positive: Rash Eyes: Positive: Negative ENT: Positive: Negative Respiratory: Positive: Negative. Negative: Shortness Of Breath Cardiovascular: Positive: Negative. Negative: Palpitations, Chest Pain Gastrointestinal: Positive: Negative. Negative: Abdominal Pain, Vomiting, Diarrhea, Nausea Neurovascular: Negative: Decreased Sensation Musculoskeletal: Positive: Arthralgia, Decreased ROM, Edema, Myalgia Neurological: Negative: Headache, Paresthesia, Numbness Psychological: Positive: Negative Physical Exam Triage Information Reviewed: Yes Appearance: Well-Appearing, No Pain Distress, Well-Nourished Vital Signs: Initial Vital Signs Temp 98.8 F 08/10/19 12:18 Pulse 80 08/10/19 12:18 Resp 18 08/10/19 12:18 BP 113/75 08/10/19 12:18 Pulse Ox 97 08/10/19 12:18 Vital Signs Reviewed: Yes Eyes: Positive: Conjunctiva Clear ENT: Positive: Hearing grossly normal Neck: Positive: Supple Respiratory Exam: Normal Respiratory: Positive: Lungs clear, Normal breath sounds, No respiratory distress Cardiovascular Exam: Normal Cardiovascular: Positive: RRR, Pulses Normal, Brisk Capillary Refill Musculoskeletal: Positive: Strength Intact, ROM Intact, Edema @ - left wrist, Other: - tenderness to palpation of left wrist. pain with flexion of fingers. Neurological Exam: Other - sensation grossly intact Neurological: Positive: Alert Psychological: Positive: Age Appropriate Behavior Skin: Positive: Other - ventral wrist noted with erythema and induration. small area noted where patient was expressing discharge, no drainage presently. erythema spreading up ventral forearm and down into hand. no fluctuance noted Hand/Wrist Course/Dx - Course Course Of Treatment: Dr. Singleton also examined the patient. It was decided that the patient may need IV antibiotics for his cellulitis and that he should go to the ED from here for treatment. Patient and voiced understanding and agreed to the treatment plan. - Differential Dx/Diagnosis Provider Diagnosis: Cellulitis Discharge ED - Sign-Out/Discharge Documenting (check all that apply): Patient Departure All imaging exams completed and their final reports reviewed: No Studies - Discharge Plan Condition: Stable Disposition: HOME-RECOMMEND TO ED Additional Instructions: Go straight to the emergency room to be treated for your cellulitis. - Billing Disposition and Condition Condition: STABLE Disposition: Home-Recommend to ED
== END 2019-08-10 12:44 | disposition home health service (06) ==
LOC: UCEAST 12:14
DX: L03.114 Cellulitis of left upper limb (principal); S60.812A Abrasion of left wrist, initial encounter; I10 Essential (primary) hypertension; F17.290 Nicotine dependence, other tobacco product, uncomplicated; Z98.84 Bariatric surgery status; X58.XXXA Exposure to other specified factors, initial encounter; Y92.9 Unspecified place or not applicable
CPT/HCPCS: 99212; G0463

== ENCOUNTER 2019-08-10 13:19 | Emergency (ER) | payer MEDICARE ==
[2019-08-10] MEDS ORDERED: NS 0.9% 1000 ML** 1,000 ML IV ONE (13:35)
[2019-08-10] MEDS ORDERED: Clindamycin 600 MG IVPREMIX(* 600 MG in PREMIX* 0 ML IV ONE (13:35)
[2019-08-10 14:16] LABS: ABS Lymphocytes 1.1 10^3/ul (1.0-4.8); ABS Monocytes 1.5 10^3/ul (0-0.8); Eosinophil % 0.2 %; Hematocrit 35 % (42-52); Hemoglobin 11.7 g/dL (14.0-18.0); Lymphocyte % 6.5 %; Mean Corpuscular HGB Conc 33 g/dL (31-36); Mean Corpuscular Hemoglobin 32 pg (27-31); Mean Corpuscular Volume 94 fL (80-94); Mean Platelet Volume 7.8 fL (7.4-10.4); Platelet Count 257 10^3/uL (150-450); Red Blood Count 3.72 10^6 /uL (4.18-5.48); Red Cell Distribution Width 12 % (10-15); White Blood Count 16.6 10^3/uL (3.5-10.8)
[2019-08-10 14:33] LABS: Albumin 3.8 g/dL (3.2-5.2); Albumin/Globulin Ratio 1.4 (1-3); BUN/Creatinine Ratio 31.3 (8-20); C Reactive Protein 68.77 mg/L (<8.01); Calcium 8.9 mg/dL (8.6-10.3); EGFR African American 117.4 (>60); Globulin 2.8 g/dL (2-4); Potassium 3.9 mmol/L (3.5-5.0); Total Bilirubin 0.4 mg/dL (0.2-1.0); Total Protein 6.6 g/dL (6.4-8.9)
[2019-08-10] MEDS ORDERED: Morphine 4 MG/ML VIAL (1 ml) 4 MG/ML VIAL IV ONE (14:58)
[2019-08-10] MEDS ORDERED: Iohexol 300* (CONTRAST) 10 ML SDV IV ONE (15:03)
[2019-08-10 17:21] VITALS: BP 124/69
--- NOTE | 2019-08-11 06:51 | ED ---
Skin Complaint - HPI Summary HPI Summary: This is a 63-year-old male who presents to the ED with a 2-3 day history of left -sided volar wrist pain and erythema and swelling. He states he noticed what he thought was a small abrasion which could've been a splinter, however he is unsure. He states he was able to express some drainage from the wrist last evening. He denies any drainage from the area currently. He does endorse pain with passive finger extension, better with rest and finger flexion. Patient is unable to completely actively flex all fingers due to discomfort. Pain is over the volar wrist radiating to the fourth and little finger as well as up to the elbow. He is endorsing worsening erythema of the forearm without noticeable streaking or he denies any pain or erythema to the palmar surface of the hand. Denies any fusiform swelling. Recent hx of RTC repair by Dr. Villegas 1 mos ago. Not currently on abx. No pain medications. Pt appears to be in distress. - History of Current Complaint Chief Complaint: EDRashSkinAbscess Time Seen by Provider: 08/10/19 13:35 Stated Complaint: CELLULITIS COMMING FROM CC Hx Obtained From: Patient Onset/Duration: Started Days Ago - 2-3 days Skin Exposure Onset/Duration: Days Ago Onset Severity: Moderate Current Severity: Moderate Pain Intensity: 3 Pain Scale Used: 0-10 Numeric Skin Location: Discrete - left wrist pain - erythema and swelling to the volar surface of the distal forearm/wrist area measuring 8cm in length, indurated Character: Pain, Redness, Raised Aggravating Symptom(s): Nothing Alleviating Symptom(s): Nothing Associated Signs & Symptoms: Negative Related History: Foreign Body - possible - Allergy/Home Medications Allergies/Adverse Reactions: Allergies Allergy/AdvReac Type Severity Reaction Status Date / Time No Known Allergies Allergy Verified 08/11/19 10:30 PMH/Surg Hx/FS Hx/Imm Hx Previously Healthy: Yes Endocrine/Hematology History: Reports: Hx Diabetes - DIET CONTROLLED, Hx Anemia Cardiovascular History: Reports: Hx Coronary Artery Disease - 2 CORONARY STENTS , Hx Hypercholesterolemia, Hx Hypertension, Other Cardiovascular Problems/ Disorders - CARDIAC STENTS 10 YEARS Denies: Hx Congestive Heart Failure, Hx Pacemaker/ICD GI History: Reports: Hx Gastroesophageal Reflux Disease, Other GI Disorders - GASTRIC BYPASS History: Reports: Hx Kidney Stones Denies: Hx Dialysis, Hx Renal Disease Musculoskeletal History: Reports: Hx Arthritis - ALL OVER Sensory History: Reports: Hx Contacts or Glasses - GLASSES Denies: Hx Deafness, Hx Hearing Aid Opthamlomology History: Reports: Hx Contacts or Glasses - GLASSES Neurological History: Reports: Other Neuro Impairments/Disorders - ? 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 RIGHT SHOULDER - ARTHROSCOPIC 2009 - ( DENIES HARDWARE), [facility] [place]. GASTRIC BYPASS, 2002, [place]. LEFT HAND CTR, 2007, [facility]. RIGHT HAND CTR, 2009, [facility]. HERNIA, 1992, [facility]. CARDIAC STENTS - 2007. rotator cuff right Hx Anesthesia Reactions: No - Immunization History Date of Tetanus Vaccine: unk Date of Influenza Vaccine: fall 2017 Hx Pertussis Vaccination: No Immunizations Up to Date: Yes Infectious Disease History: No Infectious Disease History: Reports: Hx Hepatitis - HEP C Denies: Traveled Outside the [place] in Last 30 Days - Family History Known Family History: Positive: Cardiac Disease - Social History Occupation: Employed Full-time Lives: With Family Alcohol Use: None Hx Substance Use: No Substance Use Type: Reports: None Hx Tobacco Use: Yes Smoking Status (MU): Current Every Day Smoker Type: eCigarettes Amount Used/How Often: VAPE Have You Smoked in the Last Year: Yes Review of Systems Negative: Fever, Chills, Fatigue, Skin Diaphoresis Negative: Palpitations, Chest Pain Negative: Shortness Of Breath, Cough Positive: Arthralgia - left wrist pain - erythema and swelling to the volar surface of the distal forearm/wrist area measuring 8cm in length, indurated Positive: Other - se above Neurological: Negative Psychological: Normal All Other Systems Reviewed And Are Negative: Yes Physical Exam Triage Information Reviewed: Yes Vital Signs On Initial Exam: Initial Vitals Temp Pulse Resp BP Pulse Ox 99.1 F 86 16 118/91 99 08/10/19 13:22 08/10/19 13:22 08/10/19 13:22 08/10/19 13:22 08/10/19 13:22 Vital Signs Reviewed: Yes Appearance: Positive: Well-Appearing, Pain Distress Skin: Positive: Warm, Skin Color Reflects Adequate Perfusion, Other - left wrist pain - erythema and swelling to the volar surface of the distal forearm/ wrist area measuring 8cm in length, indurated - weeping Head/Face: Positive: Normal Head/Face Inspection Eyes: Positive: EOMI, TONYA, Conjunctiva Clear Neck: Positive: Supple Respiratory/Lung Sounds: Positive: Breath Sounds Present Cardiovascular: Positive: Pulses are Symmetrical in both Upper and Lower Extremities Musculoskeletal: Positive: Other - unable to actively extend all fingertips without fusiform swelling of fingers Neurological: Positive: Speech Normal Psychiatric: Positive: Affect/Mood Appropriate AVPU Assessment: Alert Procedures - Sedation Patient Received Moderate/Deep Sedation with Procedure: No Diagnostics - Vital Signs Vital Signs Temp Pulse Resp BP Pulse Ox 08/10/19 17:20 98.4 F 86 16 124/69 95 08/10/19 15:01 18 08/10/19 13:22 99.1 F 86 16 118/91 99 - Laboratory Lab Results: Lab Results 08/10/19 08/10/19 08/10/19 Range/Units 14:08 14:08 14:08 WBC 16.6 H (3.5-10.8) 10^3/uL RBC 3.72 L (4.18-5.48) 10^6 /uL Hgb 11.7 L (14.0-18.0) g/dL Hct 35 L (42-52) % MCV 94 (80-94) fL MCH 32 H (27-31) pg MCHC 33 (31-36) g/dL RDW 12 (10-15) % Plt Count 257 (150-450) 10^3/uL MPV 7.8 (7.4-10.4) fL Neut % (Auto) 84.2 % Lymph % (Auto) 6.5 % Churchill % (Auto) 8.9 % Eos % (Auto) 0.2 % Baso % (Auto) 0.2 % Absolute Neuts (auto) 14.0 H (1.5-7.7) 10^3/ul Absolute Lymphs (auto) 1.1 (1.0-4.8) 10^3/ul Absolute Monos (auto) 1.5 H (0-0.8) 10^3/ul Absolute Eos (auto) 0.0 (0-0.6) 10^3/ul Absolute Basos (auto) 0.0 (0-0.2) 10^3/ul Absolute Nucleated RBC 0.0 10^3/ul Nucleated RBC % 0.0 Sodium 135 (135-145) mmol/L Potassium 3.9 (3.5-5.0) mmol/L Chloride 101 (101-111) mmol/L Carbon Dioxide 29 (22-32) mmol/L Anion Gap 5 (2-11) mmol/L BUN 25 H (6-24) mg/dL Creatinine 0.80 (0.67-1.17) mg/dL Est GFR ( Amer) 117.4 (>60) Est GFR (Non-Af Amer) 97.0 (>60) BUN/Creatinine Ratio 31.3 H (8-20) Glucose 112 H (70-100) mg/dL Lactic Acid 0.8 (0.5-2.0) mmol/L Calcium 8.9 (8.6-10.3) mg/dL Total Bilirubin 0.40 (0.2-1.0) mg/dL AST 88 H (13-39) U/L ALT 49 (7-52) U/L Alkaline Phosphatase 144 H (34-104) U/L C-Reactive Protein 68.77 H (<8.01) mg/L Total Protein 6.6 (6.4-8.9) g/dL Albumin 3.8 (3.2-5.2) g/dL Globulin 2.8 (2-4) g/dL Albumin/Globulin Ratio 1.4 (1-3) Result Diagrams: 08/10/19 14:08 08/10/19 14:08 Lab Statement: Any lab studies that have been ordered have been reviewed, and results considered in the medical decision making process. Course/Dx - Course Course Of Treatment: During his course treatment, the patient's evaluated for erythema, swelling and warmth to the right wrist. The area appears to be approximately 8cm in length and indurated and hard. Small amount of drainage from the distal portion of the volar wrist which is clear and non purulent. Integumentary puckering around the area of drainage. Continues to be able to passively extend at the fingers, however with pain. No pain to the palmar surface of the hand. No erythema to the palmar or dorsal surface of the hand or fingers. No fusiform swelling to any of the fingers. This does not appear to be a tenosynovitis at this point. No streaking from the large erythematous swollen area. Pt was given IV clindamycin in the ED. Labs obtained which show 16K WBC and CRP of 68. Discussed with Dr. Garcia. Trial of outpatient oral abx tonight. Discussed if any symptoms worsen, he will return to the ED tomorrow. RX clindamycin. - Differential Diagnoses - Skin Complaint Differential Diagnoses: Other - cellulitis, FB - Diagnoses Provider Diagnoses: Abscess, wrist - Physician Notifications Discussed Care Of Patient With: Felicitas Garcia Instructed by Provider To: Have Pt Call For Appt. - if symptoms persist or return to the ED tomorrow Discharge ED - Sign-Out/Discharge Documenting (check all that apply): Patient Departure - Discharge Plan Condition: Stable Disposition: HOME Prescriptions: Clindamycin Cap(NF) [Clindamycin Cap 300 mg Cap(NF)] 300 mg PO Q6H #28 cap HYDROcodone/ACETAMIN 5-325 MG* [[place] 5-325 TAB*] 1 tab PO Q4H PRN #18 tab MDD 6 PRN Reason: Pain Patient Education Materials: Abscess (ED) Referrals: Arjun Daniel MD [Primary Care Provider] - Additional Instructions: WARM COMPRESSES TO THE AREA MUCH POSSIBLE Return tomorrow if any area continues to worsen Clindamycin four times daily x 7 days Hydrocodone up to every 4 hours as needed for pain - Billing Disposition and Condition Condition: STABLE Disposition: Home Images - Images Hands: 1 - small area of drainage surrounded by indurated, hard, erythematous, swollen , warm area measuring 8cm in olength and 5cm in width without streaking up the elbow
== END 2019-08-10 17:20 | disposition home or self-care (01) ==
LOC: ED 13:19
DX: L02.414 Cutaneous abscess of left upper limb (principal); E11.9 Type 2 diabetes mellitus without complications; D64.9 Anemia, unspecified; I25.10 Atherosclerotic heart disease of native coronary artery without angina pectoris; E78.00 Pure hypercholesterolemia, unspecified; I10 Essential (primary) hypertension; K21.9 Gastro-esophageal reflux disease without esophagitis; F41.9 Anxiety disorder, unspecified; F32.9 Major depressive disorder, single episode, unspecified; F17.290 Nicotine dependence, other tobacco product, uncomplicated; Z95.5 Presence of coronary angioplasty implant and graft; Z98.84 Bariatric surgery status; Z85.05 Personal history of malignant neoplasm of liver; Z79.82 Long term (current) use of aspirin; Z79.899 Other long term (current) drug therapy
CPT/HCPCS: 10060; 36415; 80053; 83605; 85025; 86140; 87040; 87070; 87077; 87186; 87205; 96365; 96366; 96375; 99283; J2270

== ENCOUNTER 2019-08-11 10:21 | Inpatient (IN) | payer MEDICARE ==
[2019-08-11] MEDS ORDERED: Ondansetron INJ* 2 MG/ML VIAL IV ONE (11:17)
[2019-08-11] MEDS ORDERED: Morphine 4 MG/ML VIAL (1 ml) 4 MG/ML VIAL IV ONE ×2 (11:17→11:53)
--- NOTE | 2019-08-11 11:25 | ED ---
Upper Extremity Pain - HPI Summary HPI Summary: Patient returns after 1 day. He's was seen in the ED yesterday for small area of drainage surrounded by indurated, hard, erythematous, swollen, warm area measuring 8cm in length and 5cm in width without streaking up the elbow. Dx with abscess. Dr. Garcia was called. Trial of outpatient oral abx and pain control. Given Clindamycin IV in the ED. Oral clindamycin and pain medications for home. Pt states he will return if any worsening symptoms develop. Patient returns today for worsening pain and swelling to the volar surface of the wrist. Patient is unable to passively extend at the fingers at this time. Worsening swelling, erythema and no streaking up to the elbow. He is endorsing pain to the elbow as well as to the palmar surface of the left hand. Last by mouth intake was approximately 5.5 hours ago. Endorses the use of blood thinners. - History of Current Complaint Chief Complaint: EDExtremityUpper Stated Complaint: INFECTION IN WRIST PER PT Time Seen by Provider: 08/11/19 10:21 Hx Obtained From: Patient Onset/Duration: Started Days Ago Timing: Constant Severity Initially: Moderate Severity Currently: Moderate Pain Location: Wrist Character: Aching Aggravating Factor(s): Movement, Lifting, Flexion, Extension, Internal/External Rotation Alleviating Factor(s): Nothing Associated Signs & Symptoms: Positive: Swelling, Redness. Negative: Numbness/ Tingling, Nausea, Vomiting - Risk Factors Non-Orthopedic Risk Factor: Negative DVT Risk Factors: Negative Septic Arthritis Risk Factor: Negative Compartment Syndrome Risk Factors: Pain - Allergies/Home Medications Allergies/Adverse Reactions: Allergies Allergy/AdvReac Type Severity Reaction Status Date / Time No Known Allergies Allergy Verified 08/11/19 10:30 PMH/Surg Hx/FS Hx/Imm Hx Previously Healthy: Yes Endocrine/Hematology History: Reports: Hx Diabetes - DIET CONTROLLED, Hx Anemia Cardiovascular History: Reports: Hx Coronary Artery Disease - 2 CORONARY STENTS , Hx Hypercholesterolemia, Hx Hypertension, Other Cardiovascular Problems/ Disorders - CARDIAC STENTS 10 YEARS Denies: Hx Congestive Heart Failure, Hx Pacemaker/ICD GI History: Reports: Hx Gastroesophageal Reflux Disease, Other GI Disorders - GASTRIC BYPASS History: Reports: Hx Kidney Stones Denies: Hx Dialysis, Hx Renal Disease Musculoskeletal History: Reports: Hx Arthritis - ALL OVER Sensory History: Reports: Hx Contacts or Glasses - GLASSES Denies: Hx Deafness, Hx Hearing Aid Opthamlomology History: Reports: Hx Contacts or Glasses - GLASSES Neurological History: Reports: Other Neuro Impairments/Disorders - ? 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 RIGHT SHOULDER - ARTHROSCOPIC 2009 - ( DENIES HARDWARE), [facility]. GASTRIC BYPASS, 2002, [place]. LEFT HAND CTR, 2007, [facility]. RIGHT HAND CTR, 2009, [facility]. HERNIA, 1992, [facility]. CARDIAC STENTS - 2007. rotator cuff right Hx Anesthesia Reactions: No - Immunization History Date of Tetanus Vaccine: unk Date of Influenza Vaccine: fall 2017 Hx Pertussis Vaccination: No Immunizations Up to Date: Yes Infectious Disease History: No Infectious Disease History: Reports: Hx Hepatitis - HEP C Denies: Traveled Outside the [place] in Last 30 Days - Family History Known Family History: Positive: Cardiac Disease - Social History Occupation: Employed Full-time Lives: With Family Alcohol Use: None Hx Substance Use: No Substance Use Type: Reports: None Hx Tobacco Use: Yes Smoking Status (MU): Current Every Day Smoker Type: eCigarettes Amount Used/How Often: VAPE Have You Smoked in the Last Year: Yes Review of Systems Negative: Fever, Chills, Fatigue, Skin Diaphoresis Negative: Palpitations, Chest Pain Negative: Shortness Of Breath, Cough Genitourinary: Negative Positive: no symptoms reported, see HPI Negative: Arthralgia, Myalgia Positive: Other - erythematous, hard, indurated, warm area to the volar surface of the left wrist with streaking up to the elbow, no palmar involvement of the hand Neurological: Negative All Other Systems Reviewed And Are Negative: Yes Physical Exam Triage Information Reviewed: Yes Vital Signs On Initial Exam: Initial Vitals Temp Pulse Resp BP Pulse Ox 97.7 F 82 18 122/74 99 08/11/19 10:25 08/11/19 10:25 08/11/19 10:25 08/11/19 10:25 08/11/19 10:25 Vital Signs Reviewed: Yes Appearance: Positive: No Pain Distress, Well-Nourished, Pain Distress Skin: Positive: Skin Color Reflects Adequate Perfusion, Other - erythematous, hard, indurated, warm area to the volar surface of the left wrist with streaking up to the elbow, no palmar involvement of the hand Head/Face: Positive: Normal Head/Face Inspection Eyes: Positive: EOMI, TONYA, Conjunctiva Clear Neck: Positive: Supple, No Lymphadenopathy Respiratory/Lung Sounds: Positive: Clear to Auscultation, Breath Sounds Present Cardiovascular: Positive: Pulses are Symmetrical in both Upper and Lower Extremities Musculoskeletal: Positive: Pain @ - left volar surface of the wrist/forearm without streaking Neurological: Positive: Speech Normal Psychiatric: Positive: Affect/Mood Appropriate Procedures - Sedation Patient Received Moderate/Deep Sedation with Procedure: No Diagnostics - Vital Signs Vital Signs Temp Pulse Resp BP Pulse Ox 08/11/19 10:25 97.7 F 82 18 122/74 99 - Laboratory Result Diagrams: 08/11/19 12:15 08/11/19 12:15 Lab Statement: Any lab studies that have been ordered have been reviewed, and results considered in the medical decision making process. Course/Dx - Course Course Of Treatment: During the Florencia, the patient is reevaluated for worsening full her wrist surface abscess/erythema. An ultrasound was obtained yesterday: This shows extensive dermal and subcutaneous edema. At the distal ulnar volar aspect there is poor marginated infiltrative-appearing fluid collection measuring up to 3.4 x 1.9 x 0.6 involving the deep margin of the subcutaneous tissue plane to the level of the flexor retinaculum at the deep margin without compelling marginal hyperemia on Doppler. Abscess formation should be considered. Skin was marked. Discussed with Dr. Garcia who will see patient in the ED. Labs obtained again and pt is given morphine and zofran. He was subsequently given dilauded. Dr. Garcia to admit patient to OR. - Diagnoses Differential Diagnosis/HQI/PQRI: Positive: Other - cellulitis Provider Diagnoses: Abscess, wrist - Physician Notifications Discussed Care of Patient With: Felicitas Garcia Instructed by Provider To: MD Will See In ED Discharge ED - Sign-Out/Discharge Documenting (check all that apply): Patient Departure - Discharge Plan Condition: Fair Disposition: ADMITTED TO [facility] Referrals: Arjun Daniel MD [Primary Care Provider] - - Billing Disposition and Condition Condition: FAIR Disposition: Admitted to [facility]
[2019-08-11] MEDS ORDERED: NS 0.9% 1000 ML** 1,000 ML IV ONE (11:50)
[2019-08-11] MEDS ORDERED: HYDROmorphone INJ* 0.5 MG/0.5 ML SYRINGE IV ONE (12:10)
[2019-08-11 12:24] LABS: ABS Lymphocytes 1.4 10^3/ul (1.0-4.8); ABS Neutrophils 12.2 10^3/ul (1.5-7.7); Eosinophil % 0.2 %; Hematocrit 35 % (42-52); Hemoglobin 11.4 g/dL (14.0-18.0); Lymphocyte % 9.8 %; Mean Corpuscular HGB Conc 33 g/dL (31-36); Mean Corpuscular Hemoglobin 31 pg (27-31); Mean Corpuscular Volume 95 fL (80-94); Mean Platelet Volume 7.8 fL (7.4-10.4); Platelet Count 231 10^3/uL (150-450); Red Blood Count 3.68 10^6 /uL (4.18-5.48); Red Cell Distribution Width 13 % (10-15); White Blood Count 14.8 10^3/uL (3.5-10.8)
[2019-08-11 12:40] LABS: Albumin 3.8 g/dL (3.2-5.2); Albumin/Globulin Ratio 1.4 (1-3); BUN/Creatinine Ratio 28.8 (8-20); C Reactive Protein 141.79 mg/L (<8.01); Calcium 9.2 mg/dL (8.6-10.3); EGFR African American 130.5 (>60); EGFR Non-African American 107.8 (>60); Globulin 2.8 g/dL (2-4); Potassium 4.1 mmol/L (3.5-5.0); Total Bilirubin 0.4 mg/dL (0.2-1.0); Total Protein 6.6 g/dL (6.4-8.9)
[2019-08-11] MEDS ORDERED: Lidocaine 1% INJ* 10 MG/ML 30 ML SDV ONE (13:17)
[2019-08-11] MEDS ORDERED: fentaNYL* 50 MCG/ML 2 ML VIAL (100 MCG VIAL) ONE ×2 (13:17→14:43)
[2019-08-11] MEDS ORDERED: Midazolam* 1 MG/ML 2 ML VIAL (2 MG) ONE (13:17)
[2019-08-11] MEDS ORDERED: Bupivacaine 0.5%* 50 ML MDV VIAL ONE (13:17)
[2019-08-11] MEDS ORDERED: Propofol* 10 MG/ML 20 ML BTL ONE (13:18)
[2019-08-11] MEDS ORDERED: Lidocaine 2% PF * 5 ML VIAL ONE (13:18)
[2019-08-11] MEDS ORDERED: DiMENhydriNATE IV* 50 MG/ML VIAL IV PUSH PRN (13:34)
[2019-08-11] MEDS ORDERED: Naloxone* 0.4 MG/ML 1 ML VIAL IV PRN (13:34)
[2019-08-11] MEDS ORDERED: Acetaminophen TAB* 325 MG PO PRN (13:34)
[2019-08-11] MEDS ORDERED: Ketorolac INJ* 30 MG/ML 1 ML VIAL ONE (14:02)
[2019-08-11] MEDS ORDERED: Dexamethasone IV* 4 MG/ML 1 ML (4 MG) ONE (14:02)
[2019-08-11] MEDS ORDERED: Metoclopramide IV* 5 MG/ML 2 ML VIAL ONE (14:02)
[2019-08-11] MEDS ORDERED: Ondansetron INJ* 2 MG/ML VIAL ONE (14:02)
--- NOTE | 2019-08-11 14:14 | HP ---
PREOPERATIVE HISTORY AND PHYSICAL: DATE OF SURGERY/ADMISSION: 08/11/19 ATTENDING SURGEON: Felicitas Garcia MD * (DICTATED BY BETHANIE LOPES) PROCEDURE: Incision and drainage, left forearm. HISTORY OF PRESENT ILLNESS: This is a 63-year-old male who presents to the ED today for evaluation of his left forearm. He reports a 4- to 5-day history of pain, swelling, erythema. He was seen in the emergency room yesterday and was started on clindamycin and started warm soapy water soaks. Unfortunately, the pain and swelling is worsening and the patient is now unable to extend his fingers without excruciating pain. There is no streaking. He has pain at the elbow and the palmar surface of the hand. He thinks a splinter may be in the forearm, but he cannot be sure. PAST MEDICAL HISTORY: 1. Diabetes. 2. History of coronary artery disease. 3. Hypercholesterolemia. 4. Hypertension. 5. GERD. 6. History of kidney stones. 7. Anxiety and depression. 8. History of liver cancer. 9. History of hepatitis C. PAST SURGICAL HISTORY: 1. Two coronary artery stent placement in 2007. 2. Gastric bypass. 3. Cervical spine fusion. 4. Right shoulder rotator cuff repair on 07/15/19. 5. Bilateral carpal tunnel releases. 6. Hernia repair. 7. Cholecystectomy. CURRENT MEDICATIONS: 1. Aspirin 81 mg daily. 2. Cymbalta 60 mg daily. 3. Lisinopril 10 mg daily. 4. Meloxicam 15 mg daily. 5. Methadone 10 mg b.i.d. 6. Metoprolol tartrate 25 mg daily. 7. Nitrostat 0.4 mg p.r.n. 8. Pantoprazole sodium 40 mg daily. 9. Rosuvastatin calcium 20 mg daily. 10. Tamsulosin 0.4 mg daily. ALLERGIES: No known drug allergies. SOCIAL HISTORY: The patient is retired. He lives at home with his . He is a former smoker. He smoked two packs per day for most of his life before quitting about 8 months ago and currently he vapes. Denies recreational drug use and does not drink alcohol. REVIEW OF SYSTEMS: Negative for general, cephalic, cardiovascular, respiratory , GI, , other musculoskeletal, integumentary, endocrine, neurologic, and hematologic symptoms. PHYSICAL EXAMINATION GENERAL: Well-developed, well-nourished 63-year-old male in no acute distress. VITAL SIGNS: Height 5 feet 9 inches, weight 140 pounds. HEENT: Normocephalic, atraumatic. Pupils are equal, round, and reactive to light and accommodation. Extraocular movements are intact. Throat is clear. NECK: Supple. No palpable lymph nodes. PULMONARY: Lungs are clear to auscultation bilaterally. No wheezes, rales or rhonchi. CARDIOVASCULAR: Regular rate and rhythm. S1 and S2. No murmurs, rubs or gallops. ABDOMEN: Positive bowel sounds. Soft and nontender. NEUROLOGICAL: Alert and oriented x3. Cranial nerves II through XII are intact. MUSCULOSKELETAL: On exam of his left arm on the volar aspect of the forearm, he has a rather large approximately 8 cm x 5 cm area of erythema that is indurated, swollen and painful to the touch. He also has some small wounds; however, there is no active drainage and there is no visible foreign body. He hold his hand with his fingers flexed and it is difficult for him to extend the fingers. Passive extension of the fingers also causes pain. Neurovascular function is intact. There is no streaking. IMPRESSION: Left forearm cellulitis, possible abscess. PLAN: The patient is scheduled to undergo an incision and drainage of left forearm with Dr. Garcia today on 08/11/19. He will be admitted for IV antibiotics postoperatively. BETHANIE LOPES [id number]/[facility] #: [id number] [place]
[2019-08-11] MEDS ORDERED: Ondansetron ODT TAB* 4 MG PO PRN (14:38)
[2019-08-11] MEDS ORDERED: oxyCODONE/Acetamin 5/325 MG* TAB PO PRN (14:38)
[2019-08-11] MEDS ORDERED: Ondansetron INJ* 2 MG/ML VIAL IV PRN (14:38)
[2019-08-11] MEDS ORDERED: diPHENhydraMINE PO* 25 MG PO PRN (14:38)
[2019-08-11] MEDS ORDERED: Magnesium Hydroxide LIQ* 30 ML UDC PO PRN (14:38)
[2019-08-11] MEDS: fentaNYL* 50 MCG/ML 2 ML VIAL (100 MCG VIAL) IV PRN ×4 (14:43→15:04)
[2019-08-11] MEDS ORDERED: Vancomycin per Pharmacy* NOTE FOLLOW UP SCH (15:00)
[2019-08-11] MEDS ORDERED: oxyCODONE/Acetamin 5/325 MG* TAB ONE (15:35)
--- NOTE | 2019-08-11 16:09 | OP ---
DATE OF OPERATION: 08/11/19 - ROOM #332 DATE OF : 51 SURGEON: Felicitas Garcia MD BUILDING CARPENTER: BETHANIE Nicolas ANESTHESIA: General. PRE-OP DIAGNOSIS: Left forearm abscess. POST-OP DIAGNOSIS: Left forearm abscess. OPERATIVE PROCEDURE: I and D left forearm. ESTIMATED BLOOD LOSS: Zero. TOURNIQUET TIME: About 30 minutes. INDICATION FOR PROCEDURE: Eddi is a 63-year-old man who thinks he may have gotten a sliver in his forearm. Last week on Monday, he started having swelling and redness in his wrist. He came to the emergency room yesterday and was placed on oral antibiotics and warm soapy soaks. He has had increased erythema and wound drainage and presents for I and D of the left forearm. DESCRIPTION OF PROCEDURE: The patient was brought to the operating room, was given a general anesthetic and placed in supine position on the operating table with a tourniquet around his left upper extremity. The skin of his left upper extremity was prepped and draped in the usual sterile fashion. A longitudinal incision was made over the fluctuant area and we dissected through the subcutaneous tissue. There was purulent material and this was cultured. We then searched for an organic foreign body, but none was found. We dissected all the way down to the ulna and copiously irrigated the area with 4 L of normal saline. The wound was loosely closed over a Sara drain and dressed with Xeroform, 4x4, Webril, ABD, and Ayaz wrap. The patient tolerated the procedure well and was brought to the recovery room in good condition. [id number]/[facility] #: [id number] [facility]ITAL[facility]
[2019-08-11] MEDS: Lactated Ringers 1000 ML Bag* 1,000 ML IV SCH (16:15)
[2019-08-11] MEDS ORDERED: Vancomycin(*) 1,250 MG IV x ONCE IVPB ONE ×2 (17:00)
[2019-08-11] MEDS: Methadone TAB* 10 MG PO SCH ×2 (17:44→21:24)
[2019-08-11] MEDS ORDERED: ceFAZolin* 2 GM* Q8H (Duplex) IVPB SCH (20:00)
[2019-08-11] MEDS: ceFAZolin* 2 GM in NS 100 MLS Q8H (Pharmacy Admix) IVPB SCH (20:31)
[2019-08-11] MEDS: Pantoprazole TAB * 40 MG TAB PO SCH (21:24)
[2019-08-11] MEDS: DULoxetine DR CAP* 60 MG CAP.DR PO SCH (21:24)
[2019-08-11] MEDS: Tamsulosin CAP* 0.4 MG PO SCH (21:24)
[2019-08-11] MEDS: Magnesium Hydroxide LIQ* 30 ML UDC PO SCH (21:24)
[2019-08-11] MEDS: Acetaminophen TAB* 325 MG PO SCH (21:25)
[2019-08-11] MEDS: Mirtazapine TAB* 15 MG PO SCH (21:25)
[2019-08-12] MEDS ORDERED: Vancomycin(*) 1,000 MG in NS 0.9% 250 ML* 250 ML IVPB SCH (02:00)
[2019-08-12] MEDS: oxyCODONE/Acetamin 5/325 MG* TAB PO PRN ×4 (03:43→20:24)
[2019-08-12] MEDS: ceFAZolin* 2 GM in NS 100 MLS Q8H (Pharmacy Admix) IVPB SCH ×3 (03:44→20:16)
[2019-08-12] MEDS: Lactated Ringers 1000 ML Bag* 1,000 ML IV SCH (03:46)
[2019-08-12] MEDS: Acetaminophen TAB* 325 MG PO SCH ×3 (05:17→22:30)
[2019-08-12 06:43] LABS: BUN/Creatinine Ratio 25.8 (8-20); Calcium 8.3 mg/dL (8.6-10.3); EGFR African American 146.6 (>60); EGFR Non-African American 121.1 (>60); Potassium 4.2 mmol/L (3.5-5.0)
[2019-08-12] MEDS: Pantoprazole TAB * 40 MG TAB PO SCH ×2 (07:54→21:43)
[2019-08-12] MEDS ORDERED: Pneumococcal *Vac Polyvalent 0.5 ML VIAL IM ONE (09:00)
[2019-08-12] MEDS: Lisinopril TAB* 10 MG PO SCH (09:20)
[2019-08-12] MEDS: Aspirin 81 mg CHEW TAB* 81 MG TAB.CHEW PO SCH (09:20)
[2019-08-12] MEDS: DULoxetine DR CAP* 60 MG CAP.DR PO SCH ×2 (09:20→23:21)
[2019-08-12] MEDS: Methadone TAB* 10 MG PO SCH ×4 (09:21→21:43)
[2019-08-12] MEDS: Magnesium Hydroxide LIQ* 30 ML UDC PO SCH ×2 (09:21→21:43)
[2019-08-12] MEDS: Vitamin THERAPEUTIC TAB PO SCH (09:21)
--- NOTE | 2019-08-12 10:32 | PN ---
Progress Note - Progress Note Date of Service: 08/12/19 SOAP: Subjective: []Pt seen and examined at bedside. He is feeling well with much reduced LUE pain. Denies feeling of fever or chills. Denies CP, SOB, dizziness or nausea. Objective: []Gen: Appears well, NAD LUE: Dressing CDI without erythema proximal or distal to dressing. Able to flex and extend all digits, passively no pain MCP ROM 0- full fist. Extension beyond 0 remains painful. Thumbs up, okay intact. Cap refill less than two seconds distally, sensation intact to light touch throughout exposed LUE. Assessment: []L forearm I and D on 08/11 Plan: []Pen mary drain to be removed on 08/13 and possible D/C home on 08/13 on po abx On ancef, growing MSSA Vital Signs Temp 97.6 F 08/12/19 07:42 Pulse 54 08/12/19 07:42 Resp 16 08/12/19 09:21 BP 145/71 08/12/19 07:42 Pulse Ox 98 08/12/19 07:42 Intake & Output 08/11/19 08/12/19 08/12/19 18:59 06:59 18:59 Intake Total 1520 1291 Output Total 400 350 Balance 1520 891 -350 Weight 145 lb Intake: IV Fluids 1400 905 LR 600 905 IVPB 111 ABX - CEFAZOLIN 111 Oral 120 275 Output: Urine 400 350 Laboratory Last Values WBC 14.8 10^3/uL (3.5-10.8) H 08/11/19 12:15 RBC 3.68 10^6 /uL (4.18-5.48) L 08/11/19 12:15 Hgb 11.4 g/dL (14.0-18.0) L 08/11/19 12:15 Hct 35 % (42-52) L 08/11/19 12:15 MCV 95 fL (80-94) H 08/11/19 12:15 MCH 31 pg (27-31) 08/11/19 12:15 MCHC 33 g/dL (31-36) 08/11/19 12:15 RDW 13 % (10-15) 08/11/19 12:15 Plt Count 231 10^3/uL (150-450) 08/11/19 12:15 MPV 7.8 fL (7.4-10.4) 08/11/19 12:15 Neut % (Auto) 82.9 % 08/11/19 12:15 Lymph % (Auto) 9.8 % 08/11/19 12:15 Dane % (Auto) 6.8 % 08/11/19 12:15 Eos % (Auto) 0.2 % 08/11/19 12:15 Baso % (Auto) 0.3 % 08/11/19 12:15 Absolute Neuts (auto) 12.2 10^3/ul (1.5-7.7) H 08/11/19 12:15 Absolute Lymphs (auto) 1.4 10^3/ul (1.0-4.8) 08/11/19 12:15 Absolute Monos (auto) 1.0 10^3/ul (0-0.8) H 08/11/19 12:15 Absolute Eos (auto) 0.0 10^3/ul (0-0.6) 08/11/19 12:15 Absolute Basos (auto) 0.0 10^3/ul (0-0.2) 08/11/19 12:15 Absolute Nucleated RBC 0.0 10^3/ul 08/11/19 12:15 Nucleated RBC % 0.0 08/11/19 12:15 Sodium 139 mmol/L (135-145) 08/12/19 05:06 Potassium 4.2 mmol/L (3.5-5.0) 08/12/19 05:06 Chloride 108 mmol/L (101-111) 08/12/19 05:06 Carbon Dioxide 26 mmol/L (22-32) 08/12/19 05:06 Anion Gap 5 mmol/L (2-11) 08/12/19 05:06 BUN 17 mg/dL (6-24) 08/12/19 05:06 Creatinine 0.66 mg/dL (0.67-1.17) L 08/12/19 05:06 Est GFR ( Amer) 146.6 (>60) 08/12/19 05:06 Est GFR (Non-Af Amer) 121.1 (>60) 08/12/19 05:06 BUN/Creatinine Ratio 25.8 (8-20) H 08/12/19 05:06 Glucose 111 mg/dL (70-100) H 08/12/19 05:06 Calcium 8.3 mg/dL (8.6-10.3) L 08/12/19 05:06 Total Bilirubin 0.40 mg/dL (0.2-1.0) 08/11/19 12:15 AST 78 U/L (13-39) H 08/11/19 12:15 ALT 57 U/L (7-52) H 08/11/19 12:15 Alkaline Phosphatase 145 U/L (34-104) H 08/11/19 12:15 C-Reactive Protein 141.79 mg/L (<8.01) H 08/11/19 12:15 Total Protein 6.6 g/dL (6.4-8.9) 08/11/19 12:15 Albumin 3.8 g/dL (3.2-5.2) 08/11/19 12:15 Globulin 2.8 g/dL (2-4) 08/11/19 12:15 Albumin/Globulin Ratio 1.4 (1-3) 08/11/19 12:15
[2019-08-12 11:29] LABS: ABS Lymphocytes 1.1 10^3/ul (1.0-4.8); ABS Monocytes 0.6 10^3/ul (0-0.8); ABS Neutrophils 8.8 10^3/ul (1.5-7.7); Eosinophil % 0.2 %; Hematocrit 32 % (42-52); Hemoglobin 10.7 g/dL (14.0-18.0); Lymphocyte % 10.2 %; Mean Corpuscular HGB Conc 34 g/dL (31-36); Mean Corpuscular Hemoglobin 32 pg (27-31); Mean Corpuscular Volume 94 fL (80-94); Platelet Count 211 10^3/uL (150-450); Red Blood Count 3.39 10^6 /uL (4.18-5.48); Red Cell Distribution Width 13 % (10-15); White Blood Count 10.5 10^3/uL (3.5-10.8)
[2019-08-12 11:51] LABS: EGFR African American 136.9 (>60); EGFR Non-African American 113.2 (>60)
[2019-08-12 11:55] LABS: Activated Partial Thrombo Time 32.6 seconds (26.0-38.0); INR 0.96 (0.82-1.09)
--- NOTE | 2019-08-12 13:35 | CONS ---
CONSULTATION REPORT: DATE OF CONSULT: 08/12/19 PRIMARY CARE PROVIDER: Dr. Arjun Daniel. PROVIDER REQUESTING CONSULTATION: BETHANIE Monreal CONSULTING SERVICE: Infectious Disease. PROVIDER: Romi Bernard NP ATTENDING PROVIDER: Dr. Bradley Flores * (dictated by Romi Bernard NP). REASON FOR CONSULTATION: Left forearm cellulitis with abscess. IMPRESSION: 1. Left forearm cellulitis with abscess. Blood cultures obtained in the ED on 08/10/19 with no growth to date. Status post incision and drainage with Dr. Garcia yesterday. Wound culture with 4+ neutrophils, 4+ nucleated cells, 2+ gram -positive cocci resembling staph, PCR positive for Staph aureus. He has been on cefazolin. He is noted to have leukocytosis yesterday, repeat CBC has not been done today, elevated CRP on admission, no foreign body was found during surgery. He has been on cefazolin postop, previously was on clindamycin for approximately 24 hours. 2. Diabetes mellitus type 2. 3. Liver cancer. 4. History of hepatitis C. RECOMMENDATIONS/PLAN: Recommend continuing cefazolin overnight and then he can be transitioned to oral antibiotics for discharge. Further recommendations will be based on culture results and the patient's clinical course. We will continue to follow along. HISTORY OF PRESENT ILLNESS: Mr. Isaac is a 63-year-old with past medical history significant for diabetes mellitus type 2, coronary artery disease, hyperlipidemia, hypertension, GERD, renal calculi, anxiety, depression, liver cancer and hepatitis C, who states that he had developed pain, swelling, and erythema in his left forearm. He felt although he had gotten a sliver in that area and had tried to drain that at home. He was seen in the emergency room on 08/10/19 and diagnosed with cellulitis and placed on clindamycin with warm soapy water soaks. The pain and swelling continued to worsen and so the patient re-presented back to the emergency room for further evaluation. He denies any fevers or chills during this and he re-presented to the emergency room. He was seen by Orthopedics, who recommended that he go to the operating room for drainage of abscess. While in the hospital, he underwent an I and D of the left forearm with Dr. Garcia for abscess drainage. There were no foreign bodies noted. Culture results showing 4+ neutrophils, 4+ nucleated cells, 2+ gram-positive cocci resembling staph. The PCR positive for Staph aureus. He was placed on cefazolin postoperatively. He has been afebrile with leukocytosis noted at the time of admission yesterday. No repeat CBC since admission. He denies fevers, chills, joint pain, nausea, vomiting, diarrhea, constipation, urinary symptoms, rash, or recent travel. He reports the redness and swelling of this left forearm prior to surgery. PAST MEDICAL HISTORY: 1. Diabetes mellitus type 2. 2. Coronary artery disease. 3. Hyperlipidemia. 4. Hypertension. 5. GERD. 6. Renal calculi. 7. Anxiety. 8. Depression. 9. Liver cancer, recent diagnosis. 10. History of hepatitis C, treated x 2 with Interferon 15 years ago. PAST SURGICAL HISTORY: 1. Status post 2 cardiac stents in 2007. 2. Status post gastric bypass. 3. Status post C-spine fusion. 4. Status post right rotator cuff repair. 5. Status post bilateral carpal tunnel release. 6. Status post hernia repair. 7. Status post cholecystectomy. MEDICATIONS: Home medications: 1. Aspirin 81 mg by mouth daily. 2. Cymbalta 60 mg by mouth daily. 3. Lisinopril 10 mg by mouth daily. 4. Meloxicam 15 mg by mouth daily. 5. Methadone 10 mg by mouth twice daily. 6. Clindamycin 300 mg by mouth every 6 hours. 7. Nitroglycerin 0.4 mg sublingual as needed for chest pain. 8. Pantoprazole 40 mg b.i.d. 9. Rosuvastatin 20 mg by mouth daily. 10. Tamsulosin 0.8 mg by mouth daily. Hospital medications: 1. Biotin 1 mg by mouth every morning. 2. Acetaminophen 975 mg by mouth every 8 hours. 3. Acetaminophen 650 mg by mouth once as needed for mild pain. 4. Aspirin 81 mg by mouth daily. 5. Dulcolax suppository 10 mg p.r. daily as needed for constipation. 6. Cefazolin 2 g IV every 8 hours. 7. Benadryl 25 mg by mouth every 6 hours as needed for itching. 8. Cymbalta 60 mg by mouth twice daily. 9. Heparin sodium 5000 units subcutaneous every 8 hours. 10. Lactated Ringer's 100 mL an hour intravenously. 11. Lisinopril 10 mg by mouth daily. 12. Milk of magnesia 30 mL by mouth twice daily until BMs, then 30 mL by mouth every 6 hours as needed for constipation. 13. Methadone 10 mg by mouth 4 times daily. 14. Remeron 30 mg by mouth at bedtime. 15. Multivitamin 1 tablet by mouth daily. 16. Zofran 4 mg IV or p.o. every 6 hours as needed for nausea. 17. Percocet 5/325 1 to 2 tablets by mouth every 4 hours as needed for pain. 18. Protonix 40 mg by mouth twice daily. 19. Tamsulosin 0.8 mg at bedtime. ALLERGIES: No known drug allergies. FAMILY HISTORY: Denies family history of recurrent resistant infection. Mother with a history of angina. Father with a history of MT. Father also with a history of diabetes and colon cancer. Mother with a history of pancreatic cancer. SOCIAL HISTORY: Denies alcohol, recreational drug use. He is a former cigarette smoker, quitting approximately 8 months ago. He currently vapes. REVIEW OF SYSTEMS: I performed a 10-point review of systems. All the pertinent positives and negatives are mentioned in the history of present illness. The remaining review of systems are negative. PHYSICAL EXAMINATION: Vital Signs: Temperature 97.6, heart rate 54, respiratory rate 16, O2 sat 98% on room air, blood pressure 145/71. General Appearance: Alert, appears to be in no acute distress. Head: Normocephalic, atraumatic. ENT: Extraocular movements are intact. No subconjunctival hemorrhage. Moist mucous membranes. Neck: Supple. No lymphadenopathy. Neurological: Alert and oriented x4. Cranial nerves II through XII are grossly intact. Cardiovascular: Regular rate and rhythm. S1, S2 present. No murmurs, rubs, or gallops heard. Respiratory: No accessory muscle use. Lungs are clear to auscultation bilaterally. Abdomen: Bowel sounds present. Abdomen is soft, nontender, nondistended. Extremities: No lower extremity edema. DP/PT pulses are 2+. Musculoskeletal: No clubbing or cyanosis noted, exhibits good strength in all extremities. Psychological: Calm and cooperative. Skin: No rashes or abnormalities seen. He has an Ayaz wrap to his left forearm, it is clean, dry, and intact. DIAGNOSTIC STUDIES/LABORATORY DATA: Sodium 139, potassium 4.2, chloride 108, CO2 26, BUN 17, creatinine 0.66, glucose 111. CBC from yesterday, white blood cell count 14.8, hemoglobin 11.4, hematocrit 35, platelet count 231, and CRP from yesterday was also 141.79. Please see impression and recommendations outlined above. Recommendations have been discussed with BETHANIE Monreal. Thank you for asking us to see Mr. Isaac in consultation. The case has been reviewed with my attending, Dr. Bradley Flores, who agrees with the plan of care. Reviewed by RAFA DAY 08/15/19 1751 [id number] #: [id number]
[2019-08-12] MEDS: Heparin VIAL(*) 5000 UNITS/ML VIAL (FIVE THOUSAND) SUBCUT SCH ×2 (14:54→23:21)
[2019-08-12] MEDS: Tamsulosin CAP* 0.4 MG PO SCH (21:44)
[2019-08-12] MEDS: Mirtazapine TAB* 15 MG PO SCH (21:44)
[2019-08-13] MEDS: Lactated Ringers 1000 ML Bag* 1,000 ML IV SCH (00:32)
[2019-08-13] MEDS: oxyCODONE/Acetamin 5/325 MG* TAB PO PRN ×3 (01:41→12:28)
[2019-08-13] MEDS: ceFAZolin* 2 GM in NS 100 MLS Q8H (Pharmacy Admix) IVPB SCH ×2 (04:22→12:05)
[2019-08-13 05:22] LABS: ABS Eosinophils 0.1 10^3/ul (0-0.6); ABS Lymphocytes 1.7 10^3/ul (1.0-4.8); ABS Monocytes 0.6 10^3/ul (0-0.8); ABS Neutrophils 6.3 10^3/ul (1.5-7.7); Eosinophil % 0.6 %; Hematocrit 33 % (42-52); Hemoglobin 11.1 g/dL (14.0-18.0); Lymphocyte % 19.1 %; Mean Corpuscular HGB Conc 34 g/dL (31-36); Mean Corpuscular Hemoglobin 32 pg (27-31); Mean Corpuscular Volume 94 fL (80-94); Mean Platelet Volume 7.9 fL (7.4-10.4); Platelet Count 223 10^3/uL (150-450); Red Blood Count 3.51 10^6 /uL (4.18-5.48); Red Cell Distribution Width 13 % (10-15); White Blood Count 8.7 10^3/uL (3.5-10.8)
[2019-08-13 05:41] LABS: BUN/Creatinine Ratio 20.3 (8-20); C Reactive Protein 54.48 mg/L (<8.01); Calcium 8.5 mg/dL (8.6-10.3); EGFR African American 128.4 (>60); EGFR Non-African American 106.2 (>60); Potassium 4.1 mmol/L (3.5-5.0)
[2019-08-13] MEDS: Acetaminophen TAB* 325 MG PO SCH (06:20)
[2019-08-13] MEDS: Heparin VIAL(*) 5000 UNITS/ML VIAL (FIVE THOUSAND) SUBCUT SCH (06:28)
[2019-08-13 07:10] VITALS: BP 130/76
[2019-08-13] MEDS ORDERED: Vancomycin Trough Check NOTE FOLLOW UP ONE (09:30)
[2019-08-13] MEDS: Lisinopril TAB* 10 MG PO SCH (09:47)
[2019-08-13] MEDS: Methadone TAB* 10 MG PO SCH ×2 (09:47→12:28)
[2019-08-13] MEDS: Pantoprazole TAB * 40 MG TAB PO SCH (09:47)
[2019-08-13] MEDS: Vitamin THERAPEUTIC TAB PO SCH (09:47)
[2019-08-13] MEDS: Magnesium Hydroxide LIQ* 30 ML UDC PO SCH (09:47)
[2019-08-13] MEDS: DULoxetine DR CAP* 60 MG CAP.DR PO SCH (09:47)
[2019-08-13] MEDS: Aspirin 81 mg CHEW TAB* 81 MG TAB.CHEW PO SCH (09:48)
--- NOTE | 2019-08-13 11:30 | PN ---
Progress Note - Progress Note Date of Service: 08/13/19 SOAP: Subjective: [] Pt seen at bedside. He feels well and desires to DC home. Denies CP, SOB, dizziness, nausea. Pain of LUE is much improved from previous and hand ROM improving. Objective: []Gen: Appears well, NAD LUE: Dressing changed, hortencia pulled no purulence. There is moderate erythema adjacent to the incision with mild tenderness. There is no fluctuance and no proximal tracking. Redressed with gauze, kerlix, clifton. Able to flex and extend all digits, passively no pain MCP ROM 0- full fist. Extension beyond 0 remains painful. Thumbs up, okay intact. Cap refill less than two seconds distally, sensation intact to light touch throughout exposed LUE. Assessment: []L forearm I and D on 08/11 Plan: []Pen mary drain to be removed on 08/13 and possible D/C home on 08/13 on po abx On ancef, growing MSSA. Discussed with ID, will DC on doxycycline 100 mg BID x 14 days Vital Signs Temp 98.5 F 08/13/19 07:09 Pulse 65 08/13/19 07:09 Resp 16 08/13/19 09:47 BP 130/76 08/13/19 07:09 Pulse Ox 99 08/13/19 07:09 Intake & Output 08/12/19 08/13/19 08/13/19 18:59 06:59 18:59 Intake Total 360 905 360 Output Total 650 1050 Balance -290 -145 360 Intake: IV Fluids 105 ABX - CEFAZOLIN 105 Oral 360 800 360 Output: Urine 650 1050 Other: Estimated Void Medium Medium # Bowel Movements 0 Estimated Stool Amount Large # Voids 1 1 Laboratory Last Values WBC 8.7 10^3/uL (3.5-10.8) 08/13/19 05:14 RBC 3.51 10^6 /uL (4.18-5.48) L 08/13/19 05:14 Hgb 11.1 g/dL (14.0-18.0) L 08/13/19 05:14 Hct 33 % (42-52) L 08/13/19 05:14 MCV 94 fL (80-94) 08/13/19 05:14 MCH 32 pg (27-31) H 08/13/19 05:14 MCHC 34 g/dL (31-36) 08/13/19 05:14 RDW 13 % (10-15) 08/13/19 05:14 Plt Count 223 10^3/uL (150-450) 08/13/19 05:14 MPV 7.9 fL (7.4-10.4) 08/13/19 05:14 Neut % (Auto) 72.9 % 08/13/19 05:14 Lymph % (Auto) 19.1 % 08/13/19 05:14 [place]affee % (Auto) 7.0 % 08/13/19 05:14 Eos % (Auto) 0.6 % 08/13/19 05:14 Baso % (Auto) 0.4 % 08/13/19 05:14 Absolute Neuts (auto) 6.3 10^3/ul (1.5-7.7) 08/13/19 05:14 Absolute Lymphs (auto) 1.7 10^3/ul (1.0-4.8) 08/13/19 05:14 Absolute Monos (auto) 0.6 10^3/ul (0-0.8) 08/13/19 05:14 Absolute Eos (auto) 0.1 10^3/ul (0-0.6) 08/13/19 05:14 Absolute Basos (auto) 0.0 10^3/ul (0-0.2) 08/13/19 05:14 Absolute Nucleated RBC 0.0 10^3/ul 08/13/19 05:14 Nucleated RBC % 0.0 08/13/19 05:14 INR (Anticoag Therapy) 0.96 (0.82-1.09) 08/12/19 11:19 APTT 32.6 seconds (26.0-38.0) 08/12/19 11:19 Sodium 138 mmol/L (135-145) 08/13/19 05:14 Potassium 4.1 mmol/L (3.5-5.0) 08/13/19 05:14 Chloride 106 mmol/L (101-111) 08/13/19 05:14 Carbon Dioxide 29 mmol/L (22-32) 08/13/19 05:14 Anion Gap 3 mmol/L (2-11) 08/13/19 05:14 BUN 15 mg/dL (6-24) 08/13/19 05:14 Creatinine 0.74 mg/dL (0.67-1.17) 08/13/19 05:14 Est GFR ( Amer) 128.4 (>60) 08/13/19 05:14 Est GFR (Non-Af Amer) 106.2 (>60) 08/13/19 05:14 BUN/Creatinine Ratio 20.3 (8-20) H 08/13/19 05:14 Glucose 153 mg/dL (70-100) H 08/13/19 05:14 Calcium 8.5 mg/dL (8.6-10.3) L 08/13/19 05:14 Total Bilirubin 0.40 mg/dL (0.2-1.0) 08/11/19 12:15 AST 78 U/L (13-39) H 08/11/19 12:15 ALT 57 U/L (7-52) H 08/11/19 12:15 Alkaline Phosphatase 145 U/L (34-104) H 08/11/19 12:15 C-Reactive Protein 54.48 mg/L (<8.01) H 08/13/19 05:14 Total Protein 6.6 g/dL (6.4-8.9) 08/11/19 12:15 Albumin 3.8 g/dL (3.2-5.2) 08/11/19 12:15 Globulin 2.8 g/dL (2-4) 08/11/19 12:15 Albumin/Globulin Ratio 1.4 (1-3) 08/11/19 12:15
--- NOTE | 2019-08-13 11:41 | DS ---
Orthopedic Discharge Summary - Discharge Summary Date of Admission:08/11/19 Date of Discharge: 08/13/19 Date of Surgery: 08/11/19 Attending Orthopedic Provider: Dr Garcia Pre-operative Diagnosis: Left forearm abscess Operative Procedure: Left forearm I and D on 08/11 Disposition of Patient: home Condition of Patient: stable History: ROBIN MORSE is a 63 year old M with a left forearm abscess Hospital Course: ROBIN was admitted to [facility] on 08/11/19. Patient underwent a left forearm I&D without complication followed by a brief recovery in PACU and transfer to the Short Stay Surgical Unit in stable condition. Post-op day 1: patient was alert and in no acute distress. Dressing was clean, dry and intact. He was NVI distally. POD 2 drain was pulled, no discharge from incision, there is erythema surrounding the incision site without fluctuance and without any severe tenderness. No pain with passive wrist or digit ROM. ID recommendation is DC on 14 days of doxycycline 100 mg BID. Home Medications Medication Instructions Recorded Confirmed Type Lisinopril TAB* [Prinivil TAB 10 10 mg PO QAM 08/05/13 08/10/19 History MG*] Pantoprazole TAB * [Protonix TAB*] 40 mg PO BID 08/05/13 08/12/19 History Aspirin 81 mg CHEW TAB* 81 mg PO QAM 09/20/13 08/12/19 History Nitroglycerin TAB 0.4 MG* 0.4 mg SL Q5M PRN 09/20/13 08/12/19 History Methadone TAB* [Dolophine TAB*] 10 mg PO QID 11/11/14 08/12/19 History Tamsulosin CAP* [Flomax CAP*] 0.8 mg PO BEDTIME 05/20/19 08/12/19 History Biotin 1 mg PO QAM 07/10/19 08/12/19 History Mirtazapine [Remeron] 30 mg PO BEDTIME 07/10/19 08/12/19 History Vitamin B Complex CAP* [B Complex 1 cap PO QAM 07/10/19 08/12/19 History CAP*] DULoxetine CAP* [Cymbalta CAP*] 60 mg PO BID 08/10/19 08/12/19 History Acetaminophen TAB* [Tylenol TAB*] 975 mg PO Q8HR tab 08/13/19 Rx DOXYcycline CAP(*) [DOXYcycline 100 mg PO BID #28 cap 08/13/19 Rx 100MG CAP(*)] oxyCODONE/Acetamin 5/325 MG* 1 tab PO Q4H PRN tab MDD 6 08/13/19 Rx [Percocet 5/325 TAB*] oxyCODONE/Acetamin 5/325 MG* 2 tab PO Q4H PRN #15 tab MDD 6 08/13/19 Rx [Percocet 5/325 TAB*] Discharge Instructions following Orthopedic Surgery: Activity: * Weight Bearing as tolerated Wound care: * Keep incision clean dry and intact aside from soaks. Cover with gauze and clifton wrap * To soak remove all dressings, soak in warm soapy water for 20 minutes twice daily Call Orthopedic office for: * Increased drainage * Redness * Increased pain * decreased range of motion of fingers or wrist * Fever Go to ER with shortness of breath or chest pain. Diet: * Regular diet * Increase fluids and fiber to prevent constipation. * Continue to use stool softeners, call office if no bowel motion within 48 hours. Medications See Home Medication List in your packet for medications that you should take after discharge. Antibiotic: Doxycycline 100 mg every 12 hours for 14 days. Sit up for 30 minutes after taking, take with a full glass of water, avoid excessive sun exposure. Pain Control: Percocet Dosin/325 mg 1-2 tabs by mouth every 4-6 hours as needed for pain. Maximum of 6 tabs per day. hold for sedation, wean off as soon as pain allows Please note that Percocet contains Tylenol (acetaminophen). Maximum daily dose of Tylenol is 4000 mg from all sources. Antibiotics are required prior to any dental work. FOLLOW UP: Follow up with [Radha] Within 5-7 days, call for appointment Please call our office with any questions or concerns ([phone]) Follow up with infectious disease Dr Corral within 1 week
[2019-08-13] MEDS ORDERED: Bisacodyl SUPP* 10 MG SUPP PR PRN (14:38)
== END 2019-08-13 13:00 | disposition home or self-care (01) | DRG 983 ==
LOC: ED 10:21 → OR 12:41 → SSU 14:38
PROVIDERS: ADMIT Orthopaedic Surgery; ATTEND Orthopaedic Surgery
PROC: 0P9 Upper Bones, Drainage (ICD-10-PCS; principal; 2019-08-11 13:30)
DX: L02.414 Cutaneous abscess of left upper limb (principal); B95.61 Methicillin susceptible Staphylococcus aureus infection as the cause of diseases classified elsewhere; E11.9 Type 2 diabetes mellitus without complications; I25.10 Atherosclerotic heart disease of native coronary artery without angina pectoris; E78.00 Pure hypercholesterolemia, unspecified; I10 Essential (primary) hypertension; K21.9 Gastro-esophageal reflux disease without esophagitis; L03.114 Cellulitis of left upper limb; F41.9 Anxiety disorder, unspecified; F32.9 Major depressive disorder, single episode, unspecified; Z95.5 Presence of coronary angioplasty implant and graft; Z98.84 Bariatric surgery status; Z86.19 Personal history of other infectious and parasitic diseases; Z87.442 Personal history of urinary calculi; Z85.05 Personal history of malignant neoplasm of liver; Z79.82 Long term (current) use of aspirin; Z79.899 Other long term (current) drug therapy; Z87.891 Personal history of nicotine dependence; Z82.49 Family history of ischemic heart disease and other diseases of the circulatory system; Z83.3 Family history of diabetes mellitus; Z80.0 Family history of malignant neoplasm of digestive organs
CPT/HCPCS: 36415; 80048; 80053; 82565; 84520; 85025; 85610; 85730; 86140; 87070; 87073; 87077; 87186; 87205; 87640; 87641; 90732; 96361; 96374; 96375; 99283; A9270-GY; G8978-GP-CH; G8979-GP-CH; G8980-GP-CH; G8987-GO-CK; G8988-GO-CK; G8989-GO-CK; J0690; J1100; J1170; J1644; J1885; J2250; J2270; J2405; J2704; J2765; J3010; J3370; J3490